=== PATIENT | male | born 1980 | race Caucasian/White ===

== ENCOUNTER 2024-04-18 13:07 | Outpatient (AMB) | payer BC, SELFPAY ==
--- NOTE | 2024-04-18 13:11 | MHC.PC.OV ---
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 Intake Note: patient here for new patient visit Client Services Analyst Required: No Allergies gluten Allergy (Severe, Uncoded 04/18/24 13:29) Diarrhea Medication List - Last Reconciled 04/18/24 by Tami Glass CNP No Known Home Meds Tobacco use date assessed: 04/18/24 Dental Screening Dental Screen Date: 04/18/24 Did you have a dental visit in the last 12 months?: Yes Did you have a dental problem in the last 6 months where you did not have access to dental care?: No Was dental information given to patient?: Patient has dentist HPI HPI Comments History of Present Illness Details 43-year-old male presents to [facility] He was seen at an urgent care clinic for bilateral otitis median on 03/19/2023 and his blood pressure was 120/82 He was evaluated in an ED for chest been in 10/2023 and was inform his blood pressure was elevated, but he was not given the reading. His blood pressure improved in the ED without intervention. Prior PCP? - [facility] Last office visit/CPE/labs - 05/26/2018 Acute issue(s) - None Past Medical History - Morbid obesity - Celiac disease - Eczema Surgical History - Vasectomy Family History - Dad: HTN, celiac disease, eczema - Mom: DM, hypothyroidism, myasthenia gravis - MGM; Dementia Social History - Nonsmoker. Does not vape. Drinks 1-2 beers every 1-2 months. Denies recreational drug use - He does not make healthy dietary choices (consumes fast foods and processed foods). Active but does not exercise routinely. Generally sleep well Health maintenance - Last eye exam was 3-4 years ago. Referred to Ophthalmology for routine eye exam - Last dental visit was within the last 6 months. He is followed every 6 months - Last Tdap was in 12/2018 - Has not been vaccinated for the flu this season; vaccinated during this visit [facility] Medical History (Updated 04/18/24 @ 15:44 by Tami Glass CNP) Eczema Celiac disease Surgical History (Updated 04/18/24 @ 13:27 by Naida Costello) History of vasectomy History of endoscopy Family History (Updated 04/18/24 @ 13:30 by Naida Costello) Paternal Grandmother No problems noted. Maternal Grandmother Mental illness in member of household Father High blood pressure Mother Diabetes Thyroid disorder Sister Thyroid disorder Social History Housing: House Patient Tobacco Use Status: Never used Tobacco e-Cigarette/Vaping Use: Never Used Second Hand Smoke Exposure: No service: No Current occupational status: employed Current occupation: [employer] Current occupational exposures/hazards: No Cognitive needs: No Hearing needs: No Vision needs: No Questionnaire PHQ-9 Over the last 2 weeks, how often have you been bothered by any of the following problems? 1. Little interest or pleasure in doing things: not at all 2. Feeling down, depressed, or hopeless: not at all 3. Trouble falling or staying asleep, or sleeping too much: not at all 4. Feeling tired or having little energy: several days 5. Poor appetite or overeating: several days 6. Feeling bad about yourself - or that you are a failure or have let yourself or your family down: not at all 7. Trouble concentrating on things, such as reading the newspaper or watching television: several days 8. Moving or speaking so slowly that other people could have noticed. Or the opposite - being so fidgety or restless that you have been moving around a lot more than usual: not at all 9. Thoughts that you would be better off or of hurting yourself in some way: not at all Total score: 3 Depression Screening Interpretation: Negative Depression Screening Done: Yes 75236 - PHQ-9 Billing: Yes Source: Developed by Drs. Ludwin Zavala, Paula Borden, Marcial Ojeda and colleagues, with an educational re from [address] Thrive Questionnaire Date Thrive assessed: 04/18/24 I am a: Patient What is your living situation today?: I have a steady place to live Within the past 12 months, did the food you bought not last and you didn't have the money to get more?: Never true Within the past 12 months, did you worry whether your food would run out before you got money to buy more?: Never true Do you have trouble paying for medicines?: No Do you have trouble getting transportation to medical appointments?: No Do you have trouble paying your heating and electricity bill?: No Do you have trouble taking care of your child, family member or friend?: No Do you have trouble with day-to-day activities such as bathing, preparing meals, shopping, managing finances, etc.?: No Are you currently unemployed and looking for a job?: No Are you interested in more education?: No Please select the resources that you would like help with: None Currently or been in a relationship where the following occur: No concerns reported THRIVE Score: 0 AUDIT C Alcohol Use Questionnaire (AUDIT-C) 1. How often do you have a drink containing alcohol?: Monthly or less 2. How many drinks containing alcohol do you have on a typical day when you are drinking?: 1 or 2 3. How often do you have six or more drinks on one occasion?: Never Total Score: 1 Score Reviewed/Action Taken: Yes ANDRAE-7 AMB Questionnaire ANDRAE-7 Date ANDRAE - 7 assessed: 04/18/24 Feeling nervous, anxious, or on edge: 0 = Not at all Not being able to stop or control worryin = Not at all Worrying too much about different things: 0 = Not at all Trouble relaxin = Several days Being so restless that it is hard to sit still: 0 = Not at all Becoming easily annoyed or irritable: 1 = Several days Feeling afraid as if something awful might happen: 0 = Not at all Total ANDRAE-7 score (0-4 normal; 5-9 mild; 10-14 moderate; 15-21 severe): 2 Source: Developed by Drs. Ludwin Zavala, Paula Borden, Marcial Ojeda and colleagues, with an educational re from [address] ANDRAE-7 Assessment Billing ANDRAE-7 Assessment Tool: ANDRAE-7 Assessment 06160 Review of Systems Const Details: Denies chills, Denies fatigue, Denies fever(s), Denies headache(s) and Denies weakness HEENT Denies change in vision, Denies dizziness, Denies headache(s), Denies hearing loss, Denies nasal congestion, Denies sinus pain, Denies sinus pressure and Denies sore throat Card Denies chest pain, Denies lightheadedness, Denies dyspnea and Denies other (palpitations) Resp Denies cough, Denies dyspnea and Denies wheezing GI Denies abdominal pain, Denies melena, Denies hematochezia, Denies change in bowel habits, Denies dyspepsia and Denies nausea Denies hematuria and Denies dysuria Musc Denies abnormal gait, Denies myalgias, Denies arthralgias, Denies numbness and Denies tingling Skin/Breast Denies rash, Denies unusual bruising and Denies wounds Neuro Denies abnormal gait, Denies dizziness, Denies headache(s), Denies memory loss, Denies numbness, Denies Sensory deficit (Neuro), Denies tingling and Denies weakness Psych Denies anxiety, Denies depression and Denies memory loss Endo Denies cold intolerance, Denies fatigue, Denies heat intolerance, Denies polydipsia and Denies polyuria Duc/Lymph Denies easy bleeding and Denies easy bruising Aller/Immun Denies wheezing Physical exam (Primary Care) Vital Signs: Last Vital Signs Temp 98.8 F 04/18/24 13:18 Pulse 84 04/18/24 13:50 Resp 16 04/18/24 13:18 BP 150/80 H 04/18/24 13:50 Pulse Ox 98 04/18/24 13:18 Oxygen Delivery Method Room Air 04/18/24 13:18 BMI result Body Mass Index 41.1 Tobacco/Smoking Status: Tobacco use Status Tobacco use date assessed 04/18/24 04/18/24 13:17 Patient Tobacco Use Status Never used Tobacco 04/18/24 13:17 e-Cigarette/Vaping Use Never Used 04/18/24 13:17 PHQ-9: PHQ-9 Score PHQ-9: Total score 3 04/18/24 14:18 Depression Screening Interpretation: Negative Thrive Assessment: Date of Thrive Assessment Date Thrive assessed 04/18/24 04/18/24 13:13 Currently or been in a relationship where the following occur: No concerns reported Const Other: General: no acute distress, well developed, alert and awake Nutritional Appearance: well nourished Orientation/consciousness: patient oriented x3 HENMT Head: Yes normocephalic and Yes atraumatic Ears: hearing grossly normal bilaterally and TM's normal bilaterally General nose exam: Normal external nose present and Normal nares present Mouth: Normal oral and palatal mucosa present and moist mucous membranes Teeth and gingiva: dentition normal Throat: Yes oropharynx normal Eyes Pupils: Equal, round and reactive pupils present and Pupil accommodation reflex normal EOM: EOMs intact bilaterally Neck Neck: Yes normal visual inspection, Yes no lymphadenopathy and Yes trachea midline Thyroid: Thyroid normal Carotids: no bruits Lymphatic: no lymphadenopathy noted Chest Chest palpation & inspection: normal inspection of the chest Resp Effort & Inspection: normal respiratory effort Auscultation: clear to auscultation bilaterally Cardio Rate: regular rate Rhythm: regular rhythm Heart sounds: S1 normal heart sound present, S2 normal heart sound present, no gallops, no murmurs and no rubs Bruits: no abdominal aortic bruits and no carotid bruits GI Palpation (GI): No Abdominal aortic bruit present, Soft to palpation, nontender, No hepatosplenomegaly present and No Rebound tenderness present Auscultation: normal bowel sounds General: Yes no CVA tenderness Back/Spine/Pelvis Back: no CVA tenderness Cervical Spine: cervical ROM normal and No Cervical spine tenderness Thoracic/Lumbar Spine: thoraco-lumbar ROM normal, No pain with thoraco-lumbar ROM, No thoracic spinal tenderness and No lumbar spinal tenderness Skin General: warm and dry. Normal skin color. Normal skin turgor Lesions: no lesions Rashes: no rashes Trauma: no lacerations or abrasions Wounds: no wounds Nails: normal Neuro General: patient oriented x3, gait normal and CN's II-XI intact bilaterally Cranial nerves: Yes Equal, round and reactive pupils present Cognition (Neuro): normal cognition Gait exam (Neuro): Normal gait present Motor exam (neuro): 5/5 motor strength present throughout Sensory Exam: No Sensory deficit (Neuro) Deep tendon reflexes (DTR's): Right patellar reflex intensity grade: 2+ and Left patellar reflex intensity grade: 2+ Extrem General: Yes normal to inspection, No edema and No calf tenderness Psych Appearance: grossly normal Affect: normal affect Attitude: cooperative Thought process: Normal thought process present Office Procedures Flu Questionnaire Does the patient have a severe egg allergy?: No Does the patient have severe life threatening allergies?: No Does the patient have a fever or illness today?: No Has the patient ever had Guillain-Waldron Syndrome?: No Has the patient ever had any past reaction to a flu shot?: No Immunizations Fluarix Triv [id number] (PF) 45 mcg (15 mcg x 3)/0.5 mL IM syringe Performing Provider: Tami Glass CNP Performing Location: [facility] Administered by: Leo Abdullahi RN on 04/18/24 14:15 Dose Route Admin Location Dispensed Lot Number Expiration Date NDC 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 [employer]obile 0.5 mL IM Left Deltoid 0.5 mL [id number] 08/28/24 63024-708-21 [employer] VIS Given Date VIS Provided VIS Publication Date 04/18/24 Single Vaccine 20 Eligibility Eligibility Date Funding Source Not [facility] Eligible 04/18/24 Private Coding Level of Care Code New Pt Level 3 (86037) New Pt Prev Care 40-64y(88429) Diagnoses Normal physical examination, routine Z00.00 Elevated blood-pressure reading without diagnosis of hypertension R03.0 Morbid obesity with BMI of 40.0-44.9, adult E66.01; Z68.41 Eye exam, routine Z01.00 Laboratory tests ordered as part of a complete physical exam (CPE) Z00.00 Additional Codes ANDRAE-7 Assessment Billing - ANDRAE-7 Assessment Tool: ANDRAE-7 Assessment 02091 ([id number]) PHQ-9 - 45693 - PHQ-9 Billing: Yes ([id number]) Assessment & Plan Assessment & Plan (1) Normal physical examination, routine: Code(s): Z00.00 - Encounter for general adult medical examination without abnormal findings Category: Medical Plan: No significant functional limitation noted. Perform lab work and follow up in 1 weeks for elevated BP readings and labs review. Return sooner without symptoms or concerns. Verbalized understanding and agreed with the plan. (2) Elevated blood-pressure reading without diagnosis of hypertension: Code(s): R03.0 - Elevated blood-pressure reading, without diagnosis of hypertension Category: Medical Plan: Resting blood pressure is 150/80, above goal of less than 140/90. Heart rate is 84. His blood pressure was elevated during the workup in the ED for chest pain in 10/2023. His father has history of hypertension. His diet and is unhealthy, including fast and processed foods. Healthy diet, including low-sodium encouraged. Encouraged to exercise regularly. Go to the ED with symptoms of hypertension such as visual disturbances, chest pain, or severe headache. Follow-up for nurse visit for blood pressure check in 3 days. Return in 1 week or sooner with symptoms or concerns. Verbalized understanding and agreed with treatment plan. (3) Morbid obesity with BMI of 40.0-44.9, adult: Code(s): E66.01 - Morbid (severe) obesity due to excess calories; Z68.41 - Body mass index [BMI] 40.0-44.9, adult Category: Medical Plan: He currently weighs 220 lb, BMI is 41.1. His diet and is unhealthy, including fast and processed foods. He is active but does not exercise regularly. Declines referral to shoe sprayer at this time and notes he will start making healthy dietary choices and exercising routinely. Follow-up as needed. Verbalized understanding and agreed with the plan. (4) Eye exam, routine: Code(s): Z01.00 - Encounter for examination of eyes and vision without abnormal findings Category: Medical Plan: Last eye exam was 3-4 years ago. Referred to Ophthalmology for routine eye exam (5) Laboratory tests ordered as part of a complete physical exam (CPE): Code(s): Z00.00 - Encounter for general adult medical examination without abnormal findings Category: Medical Plan: Fasting labs ordered as part of a complete physical exam. Advised to fast for at least 10 hours before getting labs drawn. May drink water Verbalized understanding and agreed with treatment plan. Orders: Orders Comprehensive [place]. Panel Fast Today Z00.00 - Encounter for general adult medical examination without abnormal findings Influenza [id number] Immunization Today Z23 - Encounter for immunization Complete Blood Count Auto Diff Today Z00.00 - Encounter for general adult medical examination without abnormal findings Lipid Panel Today Z00.00 - Encounter for general adult medical examination without abnormal findings Microalbumin, Random (w Creat) Today Z00.00 - Encounter for general adult medical examination without abnormal findings TSH reflex Free T4 Today Z00.00 - Encounter for general adult medical examination without abnormal findings UA CC w/rflx Micro + Cult Today Z00.00 - Encounter for general adult medical examination without abnormal findings Referrals Ophthalmology Referral Z01.00 - Encounter for examination of eyes and vision without abnormal findings
[2024-04-18 13:18] VITALS: BP 168/90; PULSE 85; RESP 16; TEMP 37.1; O2SAT 98; BMI 41.1
[2024-04-18 13:50] VITALS: BP 150/80; PULSE 84
--- OUTSIDE RECORDS SUMMARY | 2024-04-18 14:04 | XMS_ITS | Encounter Summary ---
Author Organization [facility] Address [address] [place] [id number] Care Team Providers Care Sales Development Coordinator Name Role Phone Pcp, No Primary Care Provider Unavailabl e Reason for Visit * Reason Comments Ear Pain Pt C/O left ear pain was seen at another UC was on medx pt state it did work Encounter Details Date Type Department Care Team ([facility] st Contact Info) Description 03/24/2024 9:50 AM EST Office Visit [facility] [address] [address] Pan Hickey MD [address] [place] [address] Reuben Cabezas II, PA-C [address] [place] [address] Non-recurrent acute suppurative otitis media of left ear without spontaneous rupture of tympanic membrane (Primary Dx); Acute otitis externa of left ear, unspecified type Social History Tobacco Use Types Packs/Day Years Used Date Smoking Tobacco: Never Assessed Sex and Gender Information Value Date Recorded Sex Assigned at Not on file Gender Identity Not on file Sexual Orientation Not on file documented as of this encounter Last Filed Vital Signs Vital Sign Reading Time Taken Comments Blood Pressure 148/94 03/24/2024 9:48 AM EST Pulse 85 03/24/2024 9:48 AM EST Temperature 36.9 ??C (98.4 ??F) 03/24/2024 9:48 AM ES T Respiratory Rate - - Oxygen Saturation 96% 03/24/2024 9:48 AM EST Inhaled Oxygen Concentration - - Weight - - Height - - Body Mass Index - - documented in this encounter Progress Notes * HALIMA Castellanos II 03/24/2024 10:01 AM EST Assessment & Plan Taz was seen today for ear pain. Diagnoses and all orders for this visit: Non-recurrent acute suppurative otitis media of left ear without spontaneous rupture of tympanic membrane - cefdinir (OMNICEF) 300 MG capsule; Take 1 capsule (300 mg total) by mouth 2 (two) times a day. Acute otitis externa of left ear, unspecified type - ciprofloxacin-dexAMETHasone (CIPRODEX) 0.3-0.1 % otic suspension; Administer 4 drops into the left ear 2 (two) times a day. MDM: History, physical exam, and signs and symptoms consistent with left acute otitis media. Given that patient just finished a 7-day course of Augmentin, will treat with cefdinir twice daily x 10 days. Patient also has erythema and edema to the left external canal consistent with left acute otitisexterna, will treat with Ciprodex drops. I encouraged Tylenol/Motrin as needed for discomfort. I did advise follow-up with ENT specialist in the next 1 to 2 weeks for reevaluation if needed. Strict return and ED precautions discussed for any new, worsening, or changing symptoms. Patient verbalized understanding, all questions answered, and patient in agreement with treatment plan. Subjective Subjective Patient ID: Taz Arguelles is a 43 y.o. male. 43-year-old male presents for evaluation of left ear pain ongoing for the last few weeks. States that he was seen at another urgent care last week, diagnosed with bilateral ear infections and put on a 7-day course of Augmentin. States that he finished the course of antibiotics and his right ear resolved but he continues to have pain to the left ear. States that he has a history of chronic ear infections and believes he needs another antibiotic. Denies tinnitus, ear drainage, fever/chills, or any other symptoms. Does not use Q-tips. Has no known allergies Review of Systems Constitutional: Negative for chills and fever. HENT: Positive for ear pain. Negative for ear discharge, sinus pressure and sinus pain. Respiratory: Negative for cough and shortness of breath. All other systems reviewed and are negative. Objective Objective Vitals: 03/24/24 0948 BP: (!) 148/94 Pulse: 85 Temp: 98.4 ??F (36.9 ??C) SpO2: 96% Physical Exam HENT: Right Ear: Tympanic membrane, ear canal and external ear normal. No middle ear effusion. Tympanic membrane is not perforated, erythematous or bulging. Left Ear: No middle ear effusion. Tympanic membrane is erythematous and bulging. Tympanic membrane is not perforated. Ears: Comments: Erythema and edema with bulging to the left TM consistent with left acute otitis media. No exudate or discharge. No active bleeding. Slight erythema and edema noted to the left external canal. No evidence of mastoiditis. No evidence of cellulitis to the external ear canal Mouth/Throat: Pharynx: Oropharynx is clear. Pulmonary: Effort: Pulmonary effort is normal. No respiratory distress. Musculoskeletal: Cervical back: Normal range of motion and neck supple. Skin: Capillary Refill: Capillary refill takes less than 2 seconds. Neurological: General: No focal deficit present. Mental Status: He is alert. documented in this encounter Plan of Treatment Not on file documented as of this encounter Visit Diagnoses Diagnosis Non-recurrent acute suppurative otitis media of left ear without spontaneous rupture of tympanic membrane- Primary Acute otitis externa of left ear, unspecified type documented in this encounter Care Teams Sales Development Coordinator Relationship Specialty Start Date End Date Pcp, No PCP - General General Medicine 04/12/23 documented as of this encounter
--- OUTSIDE RECORDS SUMMARY | 2024-04-18 14:04 | XMS_ITS | Encounter Summary ---
Author Organization [facility] Address [address] [place] [address] Care Team Providers Care Munitions Factory Worker Name Role Phone Pcp, No Primary Care Provider Unavailabl e Encounter Details Date Type Department Care Team (Late st Contact Info) Description 03/24/2024 Scanned Document [address] [place] [phone] Provider, Generic Social History Tobacco Use Types Packs/Day Years Used Date Smoking Tobacco: Never Assessed Sex and Gender Information Value Date Recorded Sex Assigned at Not on file Gender Identity Not on file Sexual Orientation Not on file documented as of this encounter Plan of Treatment Not on file documented as of this encounter Visit Diagnoses Not on filedocumented in this encounter Care Teams Munitions Factory Worker Relationship Specialty Start Date End Date Pcp, No PCP - General General Medicine 04/12/23 documented as of this encounter
--- OUTSIDE RECORDS SUMMARY | 2024-04-18 14:04 | XMS_ITS ---
Author Name [facility] Organization Unknown History of Medication Use Medication Directions Dispensed Refills Start Date End Date Stat us cefdinir (OMNICEF) 300 MG capsule Take 1 capsule (300 mg total) by mouth 2 (two) times a day. 03/24/2024 active ciprofloxacin-dexAM ETHasone (CIPRODEX) 0.3-0.1 % otic suspension Administer 4 drops into the left ear 2 (two) times a day. 03/24/2024 active cephalexin (KEFLEX) 500 MG capsule Take 1 capsule (500 mg total) by mouth 4 (four) times a day. 04/12/2023 04/20/2023 active Allergies Allergen Reaction Severity Comment Documented Date Source Statu s GLUTEN Not Indicated [facility]_PHYS[facility] Problems Problem Status Onset Date Problem Type Date of Resolution Source Acute otitis externa of left ear, unspecified type active EncounterDiagnosisAct [facility] Otitis media, unspecified, left ear active 2023-06-16 ProblemAct [facility] Non-recurrent acute suppurative otitis media of left ear without spontaneous rupture of tympanic membrane [facility]
--- OUTSIDE RECORDS SUMMARY | 2024-04-18 14:04 | XMS_ITS | Clinical Summary ---
Author Organization [facility] Address [address] [place] [address] Care Team Providers Care Ventilation Mechanic Name Role Phone Pcp, No Primary Care Provider Unavailabl e Allergies No known active allergies Medications Medication Sig Dispensed Refills Start Date End Date Status amoxicillin-clavul anate (AUGMENTIN) 875-125 MG per tabletIndications: Left non-suppurative otitis media Take 1 tablet by mouth 2 (two) times a day. 20 tablet 04/12/2023 Active ciprofloxacin-dexA METHasone (CIPRODEX) 0.3-0.1 % otic suspensionIndicati ons:Acute otitis externa of left ear, unspecified type Administer 4 drops into the left ear 2 (two) times a day. 7.5 mL 03/24/2024 Active cefdinir (OMNICEF) 300 MG capsuleIndications :Non-recurrent acute suppurative otitis media of left ear without spontaneous rupture of tympanic membrane Take 1 capsule (300 mg total) by mouth 2 (two) times a day. 20 capsule 03/24/2024 04/03/2024 Active Problems No known active problems Encounters Date Type Department Care Team Description 03/24/2024 9:50 AM EST Office Visit [facility] [address] [place] [address] Pan Hickey MD Servello, Reuben Pompa II, PA-C Non-recurrent acute suppurative otitis media of left ear without spontaneous rupture of tympanic membrane (Primary Dx); Acute otitis externa of left ear, unspecified type 03/24/2024 Scanned Document [facility] [address] [facility] [address] [place] [phone] Provider, Generic 03/24/2024 Scanned Document [facility] [address] [facility] [address] [place] [phone] Provider, Generic 03/24/2024 Travel from Last 3 Months Social History Tobacco Use Types Packs/Day Years Used Date Smoking Tobacco: Never Assessed Sex and Gender Information Value Date Recorded Sex Assigned at Not on file Gender Identity Not on file Sexual Orientation Not on file Last Filed Vital Signs Vital Sign Reading Time Taken Comments Blood Pressure 148/94 03/24/2024 9:48 AM EST Pulse 85 03/24/2024 9:48 AM EST Temperature 36.9 ??C (98.4 ??F) 03/24/2024 9:48 AM ES T Respiratory Rate - - Oxygen Saturation 96% 03/24/2024 9:48 AM EST Inhaled Oxygen Concentration - - Weight 141 kg (310 lb) 11/24/2021 9:22 AM EDT Height 188 cm (6' 2 ) 11/24/2021 9:22 AM EDT Body Mass Index 39.8 11/24/2021 9:22 AM EDT Plan of Treatment Health Maintenance Due Date Last Done Comments Hepatitis C Virus Screening 1982 HIV Screening 12/23/1995 DTaP/Tdap/Td Vaccines (1 - Tdap) 2001 Hepatitis B Vaccines (1 of 3 - 19+ 3-dose series) 2001 Influenza Vaccine 09/30/2023 COVID-19 Vaccine (3 - 2023-2 5 season) 2023 07/24/2020, 06/26/2020 HPV Vaccines Aged Out No longer eligi ble based on patient's age to complete this topic Pneumococcal Vaccine: Pediatric (0-5 Years) and At-Risk Patients (6 to 49 Years) Aged Out No longer eligible b ased on patient's age to complete this topic Care Teams Ventilation Mechanic Relationship Specialty Start Date End Date Pcp, No PCP - General General Medicine 04/12/23
--- OUTSIDE RECORDS SUMMARY | 2024-04-18 14:04 | XMS_ITS | Encounter Summary ---
Author Organization [facility] Address [address] [place] [address] Care Team Providers Care Raftsman Name Role Phone Pcp, No Primary Care Provider Unavailabl e Encounter Details Date Type Department Care Team (Latest Contact Info) Description 03/24/2024 Travel Social History Tobacco Use Types Packs/Day Years Used Date Smoking Tobacco: Never Assessed Sex and Gender Information Value Date Recorded Sex Assigned at Not on file Gender Identity Not on file Sexual Orientation Not on file documented as of this encounter Plan of Treatment Not on file documented as of this encounter Visit Diagnoses Not on filedocumented in this encounter Care Teams Raftsman Relationship Specialty Start Date End Date Pcp, No PCP - General General Medicine 04/12/23 documented as of this encounter
--- OUTSIDE RECORDS SUMMARY | 2024-04-18 14:04 | XMS_ITS | Encounter Summary ---
Author Organization [facility] Address [address] [place] [address] Care Team Providers Care Police Justice Name Role Phone Pcp, No Primary Care Provider Unavailabl e Encounter Details Date Type Department Care Team (Late st Contact Info) Description 03/24/2024 Scanned Document [address] [place] [phone] Provider, Generic Social History Tobacco Use [...] on filedocumented in this encounter Care Teams Police Justice Relationship Specialty Start Date End Date Pcp, No PCP - General General Medicine 04/12/23 documented as of this encounter
== END 2024-04-18 14:12 | disposition home or self-care (01) ==
PROVIDERS: PCP Nurse Practitioner Family; Visit Provider Nurse Practitioner Family
DX: Z00.00 Encounter for general adult medical examination without abnormal findings (principal); R03.0 Elevated blood-pressure reading, without diagnosis of hypertension; E66.01 Morbid (severe) obesity due to excess calories; Z68.41 Body mass index [BMI] 40.0-44.9, adult; Z23 Encounter for immunization

== ENCOUNTER → 2024-04-18 13:07 | Outpatient (BNVA) | payer BC, SELFPAY | PROVIDERS: PCP Nurse Practitioner Family; Visit Provider Nurse Practitioner Family | DX: Z00.00 Encounter for general adult medical examination without abnormal findings (principal); Z23 Encounter for immunization; R03.0 Elevated blood-pressure reading, without diagnosis of hypertension; E66.01 Morbid (severe) obesity due to excess calories; Z68.41 Body mass index [BMI] 40.0-44.9, adult | CPT/HCPCS: 90471; 90656; 96127 ==

== ENCOUNTER → 2024-04-21 08:29 | Outpatient (BNVA) | payer BC, SELFPAY | PROVIDERS: PCP Nurse Practitioner Family; Visit Provider Nurse Practitioner Family ==

== ENCOUNTER 2024-04-21 08:54 | Outpatient (REF) | payer BC, SELFPAY ==
--- OUTSIDE RECORDS SUMMARY | 2024-04-21 09:16 | XMS_ITS | Encounter Summary ---
Author Organization [facility] Address [address] [place] [address] Care Team Providers Care Slip Cover Maker Name Role Phone Pcp, No Primary Care [...] on filedocumented in this encounter Care Teams Slip Cover Maker Relationship Specialty Start Date End Date Pcp, No PCP - General General Medicine 04/12/23 documented as of this encounter
--- OUTSIDE RECORDS SUMMARY | 2024-04-21 09:16 | XMS_ITS | Clinical Summary ---
Author Organization [facility] Address [address] [place] [address] Care Team Providers Care Bowling Ball Molder Name Role Phone Pcp, No Primary Care [...] Description 03/24/2024 9:50 AM EST Office Visit [facility] [address] [place] [address] Pan Hickey MD Servello, Reuben Pompa II, PA-C Non-recurrent acute suppurative otitis media of left ear without spontaneous rupture of tympanic membrane (Primary Dx); Acute otitis externa of left ear, unspecified type 03/24/2024 Scanned Document [facility] [address] [facility] [address] [place] [phone] Provider, Generic 03/24/2024 Scanned Document [facility] [address] [facility] [address] [place] [phone] Provider, Generic 03/24/2024 Travel from Last 3 [...] age to complete this topic Care Teams Bowling Ball Molder Relationship Specialty Start Date End Date Pcp, No PCP - General General Medicine 04/12/23
--- OUTSIDE RECORDS SUMMARY | 2024-04-21 09:16 | XMS_ITS | Encounter Summary ---
Author Organization [facility] Address [address] [place] [address] Care Team Providers Care Federal Judicial Law Clerk Name Role Phone Pcp, No Primary Care Provider Unavailabl e Reason for Visit * Reason Comments Ear Pain Pt C/O left ear pain was seen at another UC was on medx pt state it did work Encounter Details Date Type Department Care Team ([facility] st Contact Info) Description 03/24/2024 9:50 AM EST Office Visit [facility] [address] [address] Pan Hickey MD [address] [place] [address] Reuben Cabezas II, PA-C [address] [place] [address] Non-recurrent acute suppurative otitis media of left [...] type documented in this encounter Care Teams Federal Judicial Law Clerk Relationship Specialty Start Date End Date Pcp, No PCP - General General Medicine 04/12/23 documented as of this encounter
--- OUTSIDE RECORDS SUMMARY | 2024-04-21 09:16 | XMS_ITS | Encounter Summary ---
Author Organization [facility] Address [address] [place] [address] Care Team Providers Care Tongue And Groove Machine Operator Name Role Phone Pcp, No Primary Care Provider Unavailabl e Encounter Details Date Type Department Care Team (Late st Contact Info) Description 03/24/2024 Scanned Document [address] [place] [phone] Provider, Generic Social History Tobacco Use [...] on filedocumented in this encounter Care Teams Tongue And Groove Machine Operator Relationship Specialty Start Date End Date Pcp, No PCP - General General Medicine 04/12/23 documented as of this encounter
--- OUTSIDE RECORDS SUMMARY | 2024-04-21 09:16 | XMS_ITS | Encounter Summary ---
Author Organization [facility] Address [address] [place] [address] Care Team Providers Care Research/Program Director Name Role Phone Pcp, No Primary Care Provider Unavailabl e Encounter Details Date Type Department Care Team (Late st Contact Info) Description 03/24/2024 Scanned Document [address] [place] [phone] Provider, Generic Social History Tobacco Use [...] on filedocumented in this encounter Care Teams Research/Program Director Relationship Specialty Start Date End Date Pcp, No PCP - General General Medicine 04/12/23 documented as of this encounter
[2024-04-21 11:08] LABS: MANUAL DIFF FLAG NO
[2024-04-21 11:12] LABS: Basophils Absolute Auto 0.1 X10*3/uL (0.0-0.2); Basophils Percent Auto 1.2 % (0-2); Eosinophils Absolute Auto 0.2 X10*3/uL (0.0-0.4); Eosinophils Percent Auto 3.4 % (0-4); Hematocrit 46.1 % (42.0-52.0); Hemoglobin 15.5 g/dl (14.0-18.0); Imm Gran Abs Auto 0.01 X10*3/uL (0.00-0.03); Imm Gran Pct Auto 0.2 % (0.0-0.4); Lymphocytes Absolute Auto 1.6 X10*3/uL (1.2-4.9); Lymphocytes Percent Auto 26.6 % (20-40); Mean Corpuscular HGB Conc 33.6 g/dl (31.0-36.0); Mean Corpuscular Hemoglobin 29.6 pg (27.0-33.0); Mean Corpuscular Volume 88.1 fL (80.0-98.0); Mean Platelet Volume 12.6 fL (9.4-12.4); Monocytes Absolute Auto 0.4 X10*3/uL (0.1-1.2); Monocytes Percent Auto 7.3 % (2-11); Neutrophils Absolute Auto 3.6 x10*3/uL (2.0-8.3); Neutrophils Percent Auto 61.3 % (45-73); Platelet Count 196 X10*3/uL (160-400); Red Blood Count 5.23 X10*6/uL (4.60-5.80); Red Cell Distribution Width 13.2 % (11.0-16.0); White Blood Count 5.9 X10*3/uL (4.8-10.8)
[2024-04-21 11:24] LABS: Appearance Urine Clear; Color Urine Yellow; Glucose Urine UA Negative (Negative); Leukocyte Esterase Urine Negative (Negative); Nitrite Urine Negative (Negative); PH 5.5 (5.0-9.0); Specific Gravity - Urine >= 1.030 (1.005-1.025); Urine Blood Negative (Negative); Urine Ketones Negative (Negative); Urine Protein Negative (Neg-Trace)
[2024-04-21 11:46] LABS: Alanine Aminotransferase 44 U/L (0-40); Albumin Level 4.1 g/dL (3.5-5.0); Alkaline Phosphatase 111 U/L (39-117); Anion Gap 10 (12-20); Aspartate Amino Transferase 31 U/L (5-37); Bilirubin Total 0.4 mg/dL (0.0-1.0); Blood Urea Nitrogen 11 mg/dL (9-16); Calcium 9.4 mg/dL (8.4-10.2); Carbon Dioxide 26 mmol/L (22-29); Chloride 108 mmol/L (96-108); Cholesterol 203 mg/dL (<200); Estimated Glomerular Filt Rate > 60; Glucose Fasting 93 mg/dL (60-99); HDL Cholesterol 47 mg/dL (>40); LDL Cholesterol Calculated 125 mg/dL (<100); Potassium 4.1 mmol/L (3.3-5.1); Sodium 140 mmol/L (135-145); TSH reflex Free T4 2.17 uIU/mL (0.32-4.0); Total Protein 8.2 g/dL (6.5-8.0); Triglycerides 156 mg/dL (<150)
[2024-04-21 11:58] LABS: Creatinine Urine 281.16 mg/dL; Microalbum/Creatinine Ratio Ur 3.9 ug/mg cr (<30)
== END 2024-04-21 08:55 | disposition home or self-care (01) ==
LOC: HO.WFDLDS 08:54
PROVIDERS: Visit Provider Nurse Practitioner Family
DX: Z00.00 Encounter for general adult medical examination without abnormal findings (principal); I10 Essential (primary) hypertension
CPT/HCPCS: 36415; 80053; 80061; 81003; 82043; 82570; 84443; 85025; 99211

== ENCOUNTER 2024-04-28 15:52 | Outpatient (AMB) | payer BC, SELFPAY ==
--- NOTE | 2024-04-28 15:53 | A.OFFPC_ITS ---
Vital Signs 04/28/24 15:58 04/28/24 16:31 Height 6 ft 2 in Weight 315 lb BMI 40.4 BP 160/77 H 160/80 H Blood Pressure Location Rt brachial Rt brachial Position Sitting Sitting Respiration 16 Pulse 89 104 H Pulse Source Pulse Oximeter Auscultation Temp 97.7 F Temp Source Oral Pulse Oximetry (%) 96 Oxygen Delivery Method Room Air Intake Visit Reasons: 1 wk PCP for HTN, labs revew Intake Note: patient here for follow up on HTN and lab review Orchestra Musician Required: No Allergies gluten Allergy (Severe, Uncoded 04/28/24 16:21) Diarrhea Medication List - Last Reconciled 04/28/24 by Tami Glass CNP No Known Home Meds Tobacco use date assessed: 04/28/24 Dental Screening Dental Screen Date: 04/28/24 Did you have a dental visit in the last 12 months?: Yes Did you have a dental problem in the last 6 months where you did not have access to dental care?: No Was dental information given to patient?: Patient has dentist HPI HPI Comments History of Present Illness Details 43-year-old male presents for hypertensi on and review of recent lab results. He admits to making healthy dietary choices, since his last visit, including low salt. He is active but has not been exercising. He reports significant family stressors recently. [facility] Medical History (Updated 04/28/24 @ 16:41 by Tami Glass CNP) Eczema Celiac disease Surgical History (Updated 04/18/24 @ 13:27 by Naida Costello) History of vasectomy History of endoscopy Family History (Updated 04/18/24 @ 13:30 by Naida Costello) Paternal Grandmother No problems noted. Maternal Grandmother Mental illness in member of household Father High blood pressure Mother Diabetes Thyroid disorder Sister Thyroid disorder Social History Housing: House Patient Tobacco Use Status: Never used Tobacco e-Cigarette/Vaping Use: Never Used Second Hand Smoke Exposure: No service: No Current occupational status: employed Current occupation: [employer] Current occupational exposures/hazards: No Cognitive needs: No Hearing needs: No Vision needs: No Questionnaire Thrive Questionnaire Date Thrive assessed: 04/18/24 I am a: Patient What is your living situation today?: I have a steady place to live Within the past 12 months, did the food you bought not last and you didn't have the money to get more?: Never true Within the past 12 months, did you worry whether your food would run out before you got money to buy more?: Never true Do you have trouble paying for medicines?: No Do you have trouble getting transportation to medical appointments?: No Do you have trouble paying your heating and electricity bill?: No Do you have trouble taking care of your child, family member or friend?: No Do you have trouble with day-to-day activities such as bathing, preparing meals, shopping, managing finances, etc.?: No Are you currently unemployed and looking for a job?: No Are you interested in more education?: No Please select the resources that you would like help with: None Currently or been in a relationship where the following occur: No concerns reported THRIVE Score: 0 ANDRAE-7 AMB Questionnaire ANDRAE-7 Date ANDRAE - 7 assessed: 04/18/24 Source: Developed by Drs. Ludwin Zavala, Paula Borden, Marcial Ojeda and colleagues, with an educational re from [email or web address]. Review of Systems Const Details: Const Denies chills, Denies fatigue, Denies fever(s), Denies headache(s) and Denies weakness ENT Denies dizziness and Denies headache(s) Card Denies chest pain, Denies lightheadedness, Denies dyspnea and Denies other (Pa lpitations) Resp Denies cough, Denies dyspnea, Denies wheezing and Denies other ( shortness of breath) GI Denies abdominal pain, Denies melena, Denies hematochezia, Denies change in bowel habits, Denies dyspepsia and Denies nausea Denies hematuria and Denies dysuria Musc Denies abnormal gait, Denies myalgias, Denies arthralgias, Denies numbness and Denies tingling Skin/Breast Denies rash, Denies unusual bruising and Denies wounds Neuro Denies abnormal gait, Denies dizziness, Denies headache(s), Denies memory loss, Denies numbness, Denies Sensory deficit (Neuro), Denies tingling and Denies weakness Psych Denies anxiety, Denies depression, Denies memory loss Endo Denies cold intolerance, Denies fatigue, Denies heat intolerance, Denies polydipsia and Denies polyuria Aller/Immun Denies wheezing Physical exam (Primary Care) Vital Signs: Last Vital Signs Temp 97.7 F 04/28/24 15:58 Pulse 89 04/28/24 15:58 Resp 16 04/28/24 15:58 BP 160/77 H 04/28/24 15:58 Pulse Ox 96 04/28/24 15:58 Oxygen Delivery Method Room Air 04/28/24 15:58 BMI result Body Mass Index 40.4 Tobacco/Smoking Status: Tobacco use Status Tobacco use date assessed 04/28/24 04/28/24 16:03 Patient Tobacco Use Status Never used Tobacco 04/28/24 15:56 e-Cigarette/Vaping Use Never Used 04/28/24 15:56 Thrive Assessment: Date of Thrive Assessment Date Thrive assessed 04/18/24 04/28/24 15:56 Currently or been in a relationship where the following occur: No concerns reported Const Other: General: no acute distress and well developed Nutritional Appearance: well nourished Orientation/consciousness: patient oriented x3 HENMT Head: Yes normocephalic and Yes atraumatic Eyes General: appearance normal, both eyes and all related structures Pupils: Equal, round and reactive pupils present EOM: EOMs intact bilaterally Resp Effort & Inspection: normal respiratory effort Auscultation: clear to auscultation bilaterally Cardio Rate: regular rate Rhythm: regular rhythm Heart sounds: S1 normal heart sound present, S2 normal heart sound present, no gallops, no murmurs and no rubs GI Palpation (GI): No Abdominal aortic bruit present, Soft to palpation, nontender, No hepatosplenomegaly present and No Rebound tenderness present Auscultation: normal bowel sounds General: Yes no CVA tenderness Back/Spine/Pelvis Back: no CVA tenderness Cervical Spine: cervical ROM normal and No Cervical spine tenderness Thoracic/Lumbar Spine: thoraco-lumbar ROM normal, No pain with thoraco-lumbar ROM, No thoracic spinal tenderness and No lumbar spinal tenderness Extrem General: Yes normal to inspection, No edema and No calf tenderness Skin General: warm and dry. Normal skin color. Normal skin turgor Neuro General: patient oriented x3, gait normal and no focal neuro deficit Cranial nerves: Yes Equal, round and reactive pupils present Cognition (Neuro): normal cognition Gait exam (Neuro): Normal gait present Sensory Exam: No Sensory deficit (Neuro) Psych Appearance: grossly normal Affect: normal affect Attitude: cooperative Thought process: Normal thought process present Coding Level of Care Code Est Pt Level 4 (12901) Diagnoses Hyperlipidemia E78.5 Elevated ALT measurement R74.01 Hypertension I10 Assessment & Plan Assessment & Plan (1) Hyperlipidemia: Code(s): E78.5 - Hyperlipidemia, unspecified Category: Medical Plan: Recent triglycerides, total cholesterol, and LDL levels are slightly elevated, 156, 203, 125 respectively. Advised to limit foods high in saturated fat and avoid foods high in trans fat. Routine exercise encouraged. Will recheck lipid panel levels in 2 months. Verbalized understanding and agreed with treatment plan. (2) Elevated ALT measurement: Code(s): R74.01 - Elevation of levels of liver transaminase levels Category: Medical Plan: Recent ALT level was slightly elevated, 44. Likely nonalcoholic fatty liver. Healthy diet, including low-fat and routine exercise encouraged. Will monitor liver enzymes periodically or with related symptoms or concerns. Verbalized understanding and agreed with treatment plan. (3) Hypertension: Code(s): I10 - Essential (primary) hypertension Category: Medical Plan: Resting blood pressure is 160/80, above goal of less than 140/90. Heart rate is 104. Significant family stressors and his father's history of hypertension may be contributory factors. Will start metoprolol 50 mg twice daily; advised to take as prescribed. Instructed on the risks, benefits, and potential adverse reactions of the medication. Low-sodium diet encouraged. Follow-up in 2 weeks for hypertension or sooner with symptoms or concerns. Verbalized understanding and agreed with treatment plan. Medications: New metoprolol tartrate 50 mg PO Q12H 30 days 60 tabs 3RF
[2024-04-28 15:58] VITALS: BP 160/77; PULSE 89; RESP 16; TEMP 36.5; O2SAT 96; BMI 40.4
[2024-04-28 16:31] VITALS: BP 160/80; PULSE 104
--- OUTSIDE RECORDS SUMMARY | 2024-04-28 17:50 | XMS_ITS | Encounter Summary ---
Author Organization [facility] Address [address] [place] [address] Care Team Providers Care Autotransfusionist Name Role Phone Pcp, No Primary Care Provider Unavailabl e Encounter Details Date Type Department Care Team (Late st Contact Info) Description 03/24/2024 Scanned Document [address] [place] [phone] Provider, Generic Social History Tobacco Use [...] on filedocumented in this encounter Care Teams Autotransfusionist Relationship Specialty Start Date End Date Pcp, No PCP - General General Medicine 04/12/23 documented as of this encounter
--- OUTSIDE RECORDS SUMMARY | 2024-04-28 17:50 | XMS_ITS | Clinical Summary ---
Author Organization [facility] Address [address] [place] [id number] Care Team Providers Care Case Manager Specialist Name Role Phone Pcp, No Primary Care [...] Description 03/24/2024 9:50 AM EST Office Visit [facility] [address] [place] [address] Pan Hickey MD Servello, Reuben Pompa II, PA-C Non-recurrent acute suppurative otitis media of left ear without spontaneous rupture of tympanic membrane (Primary Dx); Acute otitis externa of left ear, unspecified type 03/24/2024 Scanned Document [facility] [address] [facility] [address] [place] [phone] Provider, Generic 03/24/2024 Scanned Document [facility] [address] [facility] [address] [place] [phone] Provider, Generic 03/24/2024 Travel from Last 3 [...] age to complete this topic Care Teams Case Manager Specialist Relationship Specialty Start Date End Date Pcp, No PCP - General General Medicine 04/12/23
--- OUTSIDE RECORDS SUMMARY | 2024-04-28 17:50 | XMS_ITS | Encounter Summary ---
Author Organization [facility] Address [address] [place] [address] Care Team Providers Care General Assembler Installer Name Role Phone Pcp, No Primary Care Provider Unavailabl e Encounter Details Date Type Department Care Team (Late st Contact Info) Description 03/24/2024 Scanned Document [address] [place] [phone] Provider, Generic Social History Tobacco Use [...] on filedocumented in this encounter Care Teams General Assembler Installer Relationship Specialty Start Date End Date Pcp, No PCP - General General Medicine 04/12/23 documented as of this encounter
== END 2024-04-28 16:41 | disposition home or self-care (01) ==
PROVIDERS: PCP Nurse Practitioner Family; Visit Provider Nurse Practitioner Family
DX: E78.5 Hyperlipidemia, unspecified (principal); R74.01 Elevation of levels of liver transaminase levels; I10 Essential (primary) hypertension

== ENCOUNTER → 2024-04-28 15:52 | Outpatient (BNVA) | payer BC, SELFPAY | PROVIDERS: PCP Nurse Practitioner Family; Visit Provider Nurse Practitioner Family ==

== ENCOUNTER 2024-05-15 09:28 | Outpatient (AMB) | payer BC, SELFPAY ==
--- NOTE | 2024-05-15 09:30 | A.OFFPC_ITS ---
Vital Signs 05/15/24 09:35 05/15/24 10:03 Height 6 ft 2 in Weight 315 lb BMI 40.4 BP 139/67 126/70 Blood Pressure Location Rt brachial Lt brachial Position Sitting Sitting Respiration 16 Pulse 72 68 Pulse Source Pulse Oximeter Auscultation Temp 98.7 F Temp Source Oral Pulse Oximetry (%) 95 Oxygen Delivery Method Room Air Intake Visit Reasons: 2 wks HTN Intake Note: patient here for 2 wks follow up on HTN Senior Writer Required: No Allergies gluten Allergy (Severe, Uncoded 05/15/24 09:58) Diarrhea Medication List - Last Reconciled 05/15/24 by Tami Glass CNP metoprolol tartrate 50 mg PO Q12H 30 days Tobacco use date assessed: 05/15/24 Dental Screening Dental Screen Date: 05/15/24 Did you have a dental visit in the last 12 months?: Yes Did you have a dental problem in the last 6 months where you did not have access to dental care?: No Was dental information given to patient?: Patient has dentist HPI HPI Comments History of Present Illness Details 43-year-old male presents for hypertensi on follow-up. He admits to taking her medications as prescribed without adverse reactions. He has been making healthy dietary choices, including low-sodium diet. He offers no complaints and denies acute symptoms at this time. [facility] Medical History (Updated 04/28/24 @ 16:41 by Tami Glass CNP) Eczema Celiac disease Surgical History (Updated 04/18/24 @ 13:27 by Naida Costello MA) History of vasectomy History of endoscopy Family History (Updated 04/18/24 @ 13:30 by Naida Costello MA) Paternal Grandmother No problems noted. Maternal Grandmother Mental illness in member of household Father High blood pressure Mother Diabetes Thyroid disorder Sister Thyroid disorder Social History Housing: House Patient Tobacco Use Status: Never used Tobacco e-Cigarette/Vaping Use: Never Used Second Hand Smoke Exposure: No service: No Current occupational status: employed Current occupation: [email or web address] Current occupational exposures/hazards: No Cognitive needs: No Hearing needs: No Vision needs: No Questionnaire Thrive Questionnaire Date Thrive assessed: 04/18/24 I am a: Patient What is your living situation today?: I have a steady place to live Within the past 12 months, did the food you bought not last and you didn't have the money to get more?: Never true Within the past 12 months, did you worry whether your food would run out before you got money to buy more?: Never true Do you have trouble paying for medicines?: No Do you have trouble getting transportation to medical appointments?: No Do you have trouble paying your heating and electricity bill?: No Do you have trouble taking care of your child, family member or friend?: No Do you have trouble with day-to-day activities such as bathing, preparing meals, shopping, managing finances, etc.?: No Are you currently unemployed and looking for a job?: No Are you interested in more education?: No Please select the resources that you would like help with: None Currently or been in a relationship where the following occur: No concerns reported THRIVE Score: 0 ANDRAE-7 AMB Questionnaire ANDRAE-7 Date ANDRAE - 7 assessed: 04/18/24 Source: Developed by Drs. Ludwin Zavala, Paula Borden, Marcial Ojeda and colleagues, with an educational re from [employer]. Review of Systems Const Details: Const Denies chills, Denies fatigue, Denies fever(s), Denies headache(s) and Denies weakness ENT Denies dizziness and Denies headache(s) Card Denies chest pain, Denies lightheadedness, Denies dyspnea and Denies other (Palpitations) Resp Denies cough, Denies dyspnea, Denies wheezing and Denies other ( shortness of breath) GI Denies abdominal pain, Denies melena, Denies hematochezia, Denies change in bowel habits, Denies dyspepsia and Denies nausea Denies hematuria and Denies dysuria Musc Denies abnormal gait, Denies myalgias, Denies arthralgias, Denies numbness and Denies tingling Skin/Breast Denies rash, Denies unusual bruising and Denies wounds Neuro Denies abnormal gait, Denies dizziness, Denies headache(s), Denies memory loss, Denies numbness, Denies Sensory deficit (Neuro), Denies tingling and Denies weakness Psych Denies anxiety, Denies depression, Denies memory loss Endo Denies cold intolerance, Denies fatigue, Denies heat intolerance, Denies polydipsia and Denies polyuria Aller/Immun Denies wheezing Physical exam (Primary Care) Vital Signs: Last Vital Signs Temp 98.7 F 05/15/24 09:35 Pulse 72 05/15/24 09:35 Resp 16 05/15/24 09:35 BP 139/67 05/15/24 09:35 Pulse Ox 95 05/15/24 09:35 Oxygen Delivery Method Room Air 05/15/24 09:35 BMI result Body Mass Index 40.4 Tobacco/Smoking Status: Tobacco use Status Tobacco use date assessed 05/15/24 05/15/24 09:37 Patient Tobacco Use Status Never used Tobacco 05/15/24 09:33 e-Cigarette/Vaping Use Never Used 05/15/24 09:33 Thrive Assessment: Date of Thrive Assessment Date Thrive assessed 04/18/24 05/15/24 09:33 Currently or been in a relationship where the following occur: No concerns repo rted Const Other: General: no acute distress and well developed Nutritional Appearance: well nourished Orientation/consciousness: patient oriented x3 HENMT Head: Yes normocephalic and Yes atraumatic Eyes General: appearance normal, both eyes and all related structures Pupils: Equal, round and reactive pupils present EOM: EOMs intact bilaterally Resp Effort & Inspection: normal respiratory effort Auscultation: clear to auscultation bilaterally Cardio Rate: regular rate Rhythm: regular rhythm Heart sounds: S1 normal heart sound present, S2 normal heart sound present, no gallops, no murmurs and no rubs GI Palpation (GI): No Abdominal aortic bruit present, Soft to palpation, nontender, No hepatosplenomegaly present and No Rebound tenderness present Auscultation: normal bowel sounds General: Yes no CVA tenderness Back/Spine/Pelvis Back: no CVA tenderness Cervical Spine: cervical ROM normal and No Cervical spine tenderness Thoracic/Lumbar Spine: thoraco-lumbar ROM normal, No pain with thoraco-lumbar ROM, No thoracic spinal tenderness and No lumbar spinal tenderness Extrem General: Yes normal to inspection, No edema and No calf tenderness Skin General: warm and dry. Normal skin color. Normal skin turgor Neuro General: patient oriented x3, gait normal and no focal neuro deficit Cranial nerves: Yes Equal, round and reactive pupils present Cognition (Neuro): normal cognition Gait exam (Neuro): Normal gait present Sensory Exam: No Sensory deficit (Neuro) Psych Appearance: grossly normal Affect: normal affect Attitude: cooperative Thought process: Normal thought process present Coding Level of Care Code Est Pt Level 3 (34295) Diagnoses Hypertension I10 Hyperlipidemia E78.5 Assessment & Plan Assessment & Plan (1) Hypertension: Code(s): I10 - Essential (primary) hypertension Category: Medical Plan: Resting blood pressure is 126/70, within goal of less than 140/90. Heart rate is 68. Continue current treatment regimen. Routine exercise and low-sodium diet encouraged. Follow-up in 6 weeks or sooner with symptoms or concerns. Verbalized understanding and agreed with treatment plan. (2) Hyperlipidemia: Code(s): E78.5 - Hyperlipidemia, unspecified Category: Medical Plan: Advised to limit foods high in saturated fat and avoid foods high in trans fat. Routine exercise encouraged. Fast for 10-12 hours, may drink water, and perform lipid panel blood work to 2-3 days before next visit. Follow-up in 6 weeks. Verbalized understanding and agreed with treatment plan. Orders: Orders Lipid Panel Today E78.5 - Hyperlipidemia, unspecified
[2024-05-15 09:35] VITALS: BP 139/67; PULSE 72; RESP 16; TEMP 37.1; O2SAT 95; BMI 40.4
[2024-05-15 10:03] VITALS: BP 126/70; PULSE 68
--- OUTSIDE RECORDS SUMMARY | 2024-05-15 10:14 | XMS_ITS | Clinical Summary ---
Author Organization [facility] Address [address] [place] [address] Care Team Providers Care Svp Digital Sales Name Role Phone Pcp, No Primary Care Provider Unavailabl e Allergies No known active allergies Medications Medication Sig Dispensed Refills Start Date End Date Status amoxicillin-clavulan ate (AUGMENTIN) 875-125 MG per tabletIndications:Le ft non-suppurative otitis media Take 1 tablet by mouth 2 (two) times a day. 20 tablet 04/12/2023 Active ciprofloxacin-dexAME THasone (CIPRODEX) 0.3-0.1 % otic suspensionIndication s:Acute otitis externa of left ear, unspecified type Administer 4 drops into the left ear 2 (two) times a day. 7.5 mL 03/24/2024 Active Active Problems No known active problems Encounters Date Type Department Care Team Description 03/24/2024 9:50 AM EST Office Visit [facility] [address] [place] [address] Pan Hickey MD Servello, Aldo R II, PA-C Non-recurrent acute suppurative otitis media of left ear without spontaneous rupture of tympanic membrane (Primary Dx); Acute otitis externa of left ear, unspecified type 03/24/2024 Scanned Document [facility] [address] [facility] [address] [place] [phone] Provider, Generic 03/24/2024 Scanned Document [facility] [address] [facility] [address] [place] [phone] Provider, Generic 03/24/2024 Travel from Last 3 [...] age to complete this topic Care Teams Svp Digital Sales Relationship Specialty Start Date End Date Pcp, No PCP - General General Medicine 04/12/23
--- OUTSIDE RECORDS SUMMARY | 2024-05-15 10:14 | XMS_ITS | Encounter Summary ---
Author Organization [facility] Address [address] [place] [address] Care Team Providers Care Medical Service Technician Name Role Phone Pcp, No Primary Care Provider Unavailabl e Encounter Details Date Type Department Care Team (Late st Contact Info) Description 03/24/2024 Scanned Document [address] [place] [phone] Provider, Generic Social History Tobacco Use [...] on filedocumented in this encounter Care Teams Medical Service Technician Relationship Specialty Start Date End Date Pcp, No PCP - General General Medicine 04/12/23 documented as of this encounter
--- OUTSIDE RECORDS SUMMARY | 2024-05-15 10:14 | XMS_ITS | Encounter Summary ---
Author Organization [facility] Address [address] [place] [address] Care Team Providers Care Digital Research Analyst Name Role Phone Pcp, No Primary Care Provider Unavailabl e Encounter Details Date Type Department Care Team (Late st Contact Info) Description 03/24/2024 Scanned Document [address] [place] [phone] Provider, Generic Social History Tobacco Use [...] on filedocumented in this encounter Care Teams Digital Research Analyst Relationship Specialty Start Date End Date Pcp, No PCP - General General Medicine 04/12/23 documented as of this encounter
== END 2024-05-15 10:08 | disposition home or self-care (01) ==
LOC: HO.HMCFM 09:29
PROVIDERS: PCP Nurse Practitioner Family; Visit Provider Nurse Practitioner Family
DX: I10 Essential (primary) hypertension (principal); E78.5 Hyperlipidemia, unspecified

== ENCOUNTER → 2024-05-15 09:28 | Outpatient (BNVA) | payer BC, SELFPAY | PROVIDERS: PCP Nurse Practitioner Family; Visit Provider Nurse Practitioner Family ==

== ENCOUNTER 2024-06-21 07:45 | Outpatient (REF) | payer BC, SELFPAY ==
--- OUTSIDE RECORDS SUMMARY | 2024-06-21 07:49 | XMS_ITS | Clinical Summary ---
Author Organization [facility] Address [address] [place] [id number] Care Team Providers Care Surveillance Monitor Name Role Phone Pcp, No Primary Care Provider Unavailabl e Allergies No known active allergies Medications amoxicillin-clav ulanate (AUGMENTIN) 875-125 MG per tabletIndication s:Left non-suppurative otitis media Take 1 tablet by mouth 2 (two) times a day. 20 tablet 4 Active ciprofloxacin-de xAMETHasone (CIPRODEX) 0.3-0.1 % otic suspensionIndica tions:Acute otitis externa of left ear, unspecified type Administer 4 drops into the left ear 2 (two) times a day. 7.5 mL 5 Active Active Problems No known active problems Encounters Date Type Department Care Team Description 03/24/2024 9:50 AM EST Office Visit [facility] [address] [place] [address] Pan Hickey MD Servello, Aldo R II, PA-C Non-recurrent acute suppurative otitis media of left ear without spontaneous rupture of tympanic membrane (Primary Dx); Acute otitis externa of left ear, unspecified type 03/24/2024 Scanned Document [facility] [address] [facility] [address] [place] [phone] Provider, Generic 03/24/2024 Scanned Document [facility] [address] [facility] [address] [place] [phone] Provider, Generic 03/24/2024 Travel from Last 3 Months Social History Tobacco Use Types Packs/Day Years Used Date Smoking Tobacco: Never Assessed Sex and Gender Information Value Date Recorded Sex Assigned at Not on file Legal Sex Male 9:07 AM EDT Gender Identity Not on file Sexual Orientation [...] on patient's age to complete [place] [id number] [facility] PPO Care Teams Surveillance Monitor Relationship Specialty Start Date End Date Pcp, No PCP - General General Medicine 04/12/23
--- OUTSIDE RECORDS SUMMARY | 2024-06-21 07:49 | XMS_ITS | Encounter Summary ---
Author Organization [facility] Address [address] [place] [address] Care Team Providers Care Hand Mounter Name Role Phone Pcp, No Primary Care Provider Unavailabl e Encounter Details Date Type Department Care Team (Late st Contact Info) Description 03/24/2024 Scanned Document [address] [place] [phone] Provider, Generic Social History Tobacco Use [...] on filedocumented in this encounter Care Teams Hand Mounter Relationship Specialty Start Date End Date Pcp, No PCP - General General Medicine 04/12/23 documented as of this encounter
--- OUTSIDE RECORDS SUMMARY | 2024-06-21 07:49 | XMS_ITS | Encounter Summary ---
Author Organization [facility] Address [address] [place] [address] Care Team Providers Care Internet Architect Name Role Phone Pcp, No Primary Care Provider Unavailabl e Encounter Details Date Type Department Care Team (Late st Contact Info) Description 03/24/2024 Scanned Document [address] [place] [phone] Provider, Generic Social History Tobacco Use [...] on filedocumented in this encounter Care Teams Internet Architect Relationship Specialty Start Date End Date Pcp, No PCP - General General Medicine 04/12/23 documented as of this encounter
[2024-06-21 12:05] LABS: Cholesterol 186 mg/dL (<200); HDL Cholesterol 41 mg/dL (>40); LDL Cholesterol Calculated 118 mg/dL (<100); Triglycerides 138 mg/dL (<150)
== END 2024-06-21 07:46 | disposition home or self-care (01) ==
LOC: HO.WFDLDS 07:45
PROVIDERS: Visit Provider Nurse Practitioner Family
DX: E78.5 Hyperlipidemia, unspecified (principal)
CPT/HCPCS: 36415; 80061

== ENCOUNTER 2024-06-26 08:08 | Outpatient (AMB) | payer BC, SELFPAY ==
--- NOTE | 2024-06-26 08:15 | A.OFFPC_ITS ---
Vital Signs 06/26/24 08:19 Height 6 ft 2 in Weight 307 lb 2 oz BMI 39.4 BP 127/60 Blood Pressure Location Rt brachial Position Sitting Respiration 16 Pulse 77 Pulse Source Pulse Oximeter Temp 98.5 F Temp Source Oral Pulse Oximetry (%) 98 Oxygen Delivery Method Room Air Intake Visit Reasons: 6 wks HTN, hyperlipidemia Intake Note: patient here for 6 wks HTN and Hyperlipidema Roll Or Tape Edge Machine Operator Required: No Allergies gluten Allergy (Severe, Uncoded 05/15/24 09:58) Diarrhea Medication List - Last Reconciled 06/26/24 by Tami Glass CNP lisinopril 20 mg PO DAILY 30 days Tobacco use date assessed: 06/26/24 Dental Screening Dental Screen Date: 06/26/24 Did you have a dental visit in the last 12 months?: Yes Did you have a dental problem in the last 6 months where you did not have access to dental care?: No Was dental information given to patient?: Patient has dentist HPI HPI Comments History of Present Illness Details 43-year-old male presents for hypertensi on and hyperlipidemia follow- up. He admits to taking lisinopril as prescribed without adverse reactions. Metoprolol was recently discontinued due to reported adverse reactions. Lisinopril 20 mg daily was ordered. He has been making healthy lifestyle changes. He offers no complaints and denies acute symptoms at this time. [facility] Medical History (Updated 04/28/24 @ 16:41 by Tami Glass CNP) Eczema Celiac disease Surgical History (Updated 04/18/24 @ 13:27 by Naida Costello MA) History of vasectomy History of endoscopy Family History (Updated 04/18/24 @ 13:30 by Naida Costello MA) Paternal Grandmother No problems noted. Maternal Grandmother Mental illness in member of household Father High blood pressure Mother Diabetes Thyroid disorder Sister Thyroid disorder Social History Housing: House Patient Tobacco Use Status: Never used Tobacco e-Cigarette/Vaping Use: Never Used Second Hand Smoke Exposure: No service: No Current occupational status: employed Current occupation: [employer] Current occupational exposures/hazards: No Cognitive needs: No Hearing needs: No Vision needs: No Questionnaire Thrive Questionnaire Date Thrive assessed: 04/18/24 I am a: Patient What is your living situation today?: I have a steady place to live Within the past 12 months, did the food you bought not last and you didn't have the money to get more?: Never true Within the past 12 months, did you worry whether your food would run out before you got money to buy more?: Never true Do you have trouble paying for medicines?: No Do you have trouble getting transportation to medical appointments?: No Do you have trouble paying your heating and electricity bill?: No Do you have trouble taking care of your child, family member or friend?: No Do you have trouble with day-to-day activities such as bathing, preparing meals, shopping, managing finances, etc.?: No Are you currently unemployed and looking for a job?: No Are you interested in more education?: No Please select the resources that you would like help with: None Currently or been in a relationship where the following occur: No concerns reported THRIVE Score: 0 ANDRAE-7 AMB Questionnaire ANDRAE-7 Date ANDRAE - 7 assessed: 04/18/24 Source: Developed by Drs. Ludwin Zavala, Paula Borden, Marcial Ojeda and colleagues, with an educational re from [employer]. Review of Systems Const Details: Const Denies chills, Denies fatigue, Denies fever(s), Denies headache(s) and Denies weakness ENT Denies dizziness and Denies headache(s) Card Denies chest pain, Denies lightheadedness, Denies dyspnea and Denies other (Palpitations) Resp Denies cough, Denies dyspnea, Denies wheezing and Denies other ( shortness of breath) GI Denies abdominal pain, Denies melena, Denies hematochezia, Denies change in bowel habits, Denies dyspepsia and Denies nausea Denies hematuria and Denies dysuria Musc Denies abnormal gait, Denies myalgias, Denies arthralgias, Denies numbness and Denies tingling Skin/Breast Denies rash, Denies unusual bruising and Denies wounds Neuro Denies abnormal gait, Denies dizziness, Denies headache(s), Denies memory loss, Denies numbness, Denies Sensory deficit (Neuro), Denies tingling and Denies weakness Psych Denies anxiety, Denies depression, Denies memory loss Endo Denies cold intolerance, Denies fatigue, Denies heat intolerance, Denies polydipsia and Denies polyuria Aller/Immun Denies wheezing Physical exam (Primary Care) Tobacco/Smoking Status: Tobacco use Status Tobacco use date assessed 05/15/24 06/26/24 08:17 Patient Tobacco Use Status Never used Tobacco 06/26/24 08:17 e-Cigarette/Vaping Use Never Used 06/26/24 08:17 Thrive Assessment: Date of Thrive Assessment Date Thrive assessed 04/18/24 06/26/24 08:17 Currently or been in a relationship where the following occur: No concerns reported Const Other: General: no acute distress and well developed Nutritional Appearance: well nourished Orientation/consciousness: patient oriented x3 HENMT Head: Yes normocephalic and Yes atraumatic Eyes General: appearance normal, both eyes and all related structures Pupils: Equal, round and reactive pupils present EOM: EOMs intact bilaterally Resp Effort & Inspection: normal respiratory effort Auscultation: clear to auscultation bilaterally Cardio Rate: regular rate Rhythm: regular rhythm Heart sounds: S1 normal heart sound present, S2 normal heart sound present, no gallops, no murmurs and no rubs GI Palpation (GI): No Abdominal aortic bruit present, Soft to palpation, nontender, No hepatosplenomegaly present and No Rebound tenderness present Auscultation: normal bowel sounds General: Yes no CVA tenderness Back/Spine/Pelvis Back: no CVA tenderness Cervical Spine: cervical ROM normal and No Cervical spine tenderness Thoracic/Lumbar Spine: thoraco-lumbar ROM normal, No pain with thoraco-lumbar ROM, No thoracic spinal tenderness and No lumbar spinal tenderness Extrem General: Yes normal to inspection, No edema and No calf tenderness Skin General: warm and dry. Normal skin color. Normal skin turgor Neuro General: patient oriented x3, gait normal and no focal neuro deficit Cranial nerves: Yes Equal, round and reactive pupils present Cognition (Neuro): normal cognition Gait exam (Neuro): Normal gait present Sensory Exam: No Sensory deficit (Neuro) Psych Appearance: grossly normal Affect: normal affect Attitude: cooperative Thought process: Normal thought process present Coding Level of Care Code Est Pt Level 3 (50537) Diagnoses Hypertension I10 Hyperlipidemia E78.5 Assessment & Plan Assessment & Plan (1) Hypertension: Code(s): I10 - Essential (primary) hypertension Category: Medical Plan: Resting blood pressure is 127/60 within goal of less than 140/90. Continue current treatment regimen. Low-sodium diet encouraged. Follow-up in 3 months or sooner with symptoms or concerns. Verbalized understanding and agreed with the plan. (2) Hyperlipidemia: Code(s): E78.5 - Hyperlipidemia, unspecified Category: Medical Plan: Recent triglyceride is normal, 138 from 156, total cholesterol is normal, 186 from 23, LDL slightly elevated, 118 from 125, HDL is normal. He has been making healthy lifestyle changes and has lost 8 lb since his last visit. Encouraged to limit foods high in saturated fats and avoid foods high in trans fats. Routine exercise encouraged. Will recheck lipid panel levels in 3 months. Fast for 10-12 hours, may drink water, and perform lipid panel blood work before next visit. Verbalized understanding and agreed with the plan. Orders: Orders Lipid Panel 3 Months E78.5 - Hyperlipidemia, unspecified
--- OUTSIDE RECORDS SUMMARY | 2024-06-26 08:18 | XMS_ITS | Clinical Summary ---
Author Organization [facility] Address [address] [place] [address] Care Team Providers Care Nurse Executive Name Role Phone Pcp, No Primary Care [...] Active Active Problems No known active problems Social History Tobacco Use Types Packs/Day Years [...] patient's age to complete this topic Insurance [place] [id number] [facility] PPO Care Teams Nurse Executive Relationship Specialty Start Date End Date Pcp, No PCP - General General Medicine 04/12/23
--- OUTSIDE RECORDS SUMMARY | 2024-06-26 08:18 | XMS_ITS | Encounter Summary ---
Author Organization [facility] Address [address] [place] [address] Care Team Providers Care Prototype Deicer Assembler Name Role Phone Pcp, No Primary Care Provider Unavailabl e Encounter Details Date Type Department Care Team (Late st Contact Info) Description 03/24/2024 Scanned Document [address] [place] [phone] Provider, Generic Social History Tobacco Use [...] on filedocumented in this encounter Care Teams Prototype Deicer Assembler Relationship Specialty Start Date End Date Pcp, No PCP - General General Medicine 04/12/23 documented as of this encounter
--- OUTSIDE RECORDS SUMMARY | 2024-06-26 08:18 | XMS_ITS | Encounter Summary ---
Author Organization [facility] Address [address] [place] [address] Care Team Providers Care Clinical Phlebotomist Name Role Phone Pcp, No Primary Care Provider Unavailabl e Encounter Details Date Type Department Care Team (Late st Contact Info) Description 03/24/2024 Scanned Document [address] [place] [phone] Provider, Generic Social History Tobacco Use [...] on filedocumented in this encounter Care Teams Clinical Phlebotomist Relationship Specialty Start Date End Date Pcp, No PCP - General General Medicine 04/12/23 documented as of this encounter
[2024-06-26 08:19] VITALS: BP 127/60; PULSE 77; RESP 16; TEMP 36.9; O2SAT 98; BMI 39.4
== END 2024-06-26 08:54 | disposition home or self-care (01) ==
LOC: HO.HMCFM 08:08
PROVIDERS: PCP Nurse Practitioner Family; Visit Provider Nurse Practitioner Family
DX: I10 Essential (primary) hypertension (principal); E78.5 Hyperlipidemia, unspecified

== ENCOUNTER → 2024-06-26 08:08 | Outpatient (BNVA) | payer BC, SELFPAY | PROVIDERS: PCP Nurse Practitioner Family; Visit Provider Nurse Practitioner Family ==

== ENCOUNTER 2024-09-22 07:32 | Outpatient (REF) | payer BC, SELFPAY ==
--- OUTSIDE RECORDS SUMMARY | 2024-09-22 07:35 | XMS_ITS | Encounter Summary ---
Author Organization [facility] Address [address] [place] [address] Care Team Providers Care Bulldozer Operator Name Role Phone Pcp, No Primary Care Provider Unavailabl e Encounter Details Date Type Department Care Team (Late st Contact Info) Description 03/24/2024 Scanned Document [address] [place] [phone] Provider, Generic Social History Tobacco Use [...] on filedocumented in this encounter Care Teams Bulldozer Operator Relationship Specialty Start Date End Date Pcp, No PCP - General General Medicine 04/12/23 documented as of this encounter
--- OUTSIDE RECORDS SUMMARY | 2024-09-22 07:35 | XMS_ITS ---
Author Name [facility] Unknown History of Medication Use Medication [...] Comment Documented Date Source Statu s GLUTEN NOT INDICATED [facility]_PHYSONE Problems Problem Status Onset Date Problem Type Date of Resolution Source Otitis media, unspecified, left ear active 2023-06-[address] [facility] Acute otitis externa of left ear, unspecified type active EncounterDiagnosisAct [facility] Non-recurrent acute suppurative otitis media of left ear without spontaneous rupture of tympanic membrane active EncounterDiagnosisAct H [facility] Encounters Encounter Type Encounter Reason Primary Diagnosis Location Date Ambulatory Ear Pain Ear Pain [facility] 03/24/2024 Ambulatory Unspecified nonsuppurative otitis media, left ear Unspecified nonsuppurative otitis media, left ear [facility] 04/12/2023 Ambulatory Otitis media, unspecified, left ear [facility] 11/24/2021 Care Team Organization Name Specialty Phone Email Start Date End Da te [facility] NO PROVIDER Primary Care 06/17/2023 [facility] NO PROVIDER Primary Care 06/16/2023 [facility] NO PCP Primary Care 04/12/2023 [facility] 11/24/2021 05/17/2024 [facility] 11/24/2021 11/24/2021
[2024-09-22 11:28] LABS: Cholesterol 208 mg/dL (<200); HDL Cholesterol 45 mg/dL (>40); Triglycerides 136 mg/dL (<150)
== END 2024-09-22 07:33 | disposition home or self-care (01) ==
LOC: HO.WFDLDS 07:32
PROVIDERS: Visit Provider Nurse Practitioner Family
DX: E78.5 Hyperlipidemia, unspecified (principal)
CPT/HCPCS: 36415; 80061

== ENCOUNTER 2024-09-26 08:15 | Outpatient (AMB) | payer BC, SELFPAY ==
--- OUTSIDE RECORDS SUMMARY | 2024-09-26 08:22 | XMS_ITS | Encounter Summary ---
Author Organization [facility] Address [address] [place] [address] Care Team Providers Care Research Program Internship Name Role Phone Pcp, No Primary Care Provider Unavailabl e Encounter Details Date Type Department Care Team (Late st Contact Info) Description 03/24/2024 Scanned Document [address] [place] [phone] Provider, Generic Social History Tobacco Use [...] on filedocumented in this encounter Care Teams Research Program Internship Relationship Specialty Start Date End Date Pcp, No PCP - General General Medicine 04/12/23 documented as of this encounter
--- NOTE | 2024-09-26 08:26 | A.OFFPC_ITS ---
Vital Signs 09/26/24 08:29 Height 6 ft 2 in Weight 304 lb 2 oz BMI 39.0 BP 128/67 Blood Pressure Location Rt brachial Position Sitting Respiration 16 Pulse 77 Pulse Source Pulse Oximeter Temp 98.6 F Temp Source Oral Pulse Oximetry (%) 96 Oxygen Delivery Method Room Air Intake Visit Reasons: 3 mos HTN, HLD Intake Note: patient here for 3month follow up for HTN and HLD Extract Mixer Required: No Allergies gluten Allergy (Severe, Uncoded 09/26/24 08:47) Diarrhea Medication List - Last Reconciled 09/26/24 by Tami Glass CNP lisinopril 20 mg PO DAILY 30 days Tobacco use date assessed: 09/26/24 Dental Screening Dental Screen Date: 09/26/24 Did you have a dental visit in the last 12 months?: Yes Did you have a dental problem in the last 6 months where you did not have access to dental care?: No Was dental information given to patient?: Patient has dentist HPI HPI Comments History of Present Illness Details 43-year-old male presents for hypertensi on and hyperlipidemia follow- up. He admits to taking lisinopril as prescribed without adverse reactions. He notes that he has been making healthy lifestyle changes. His home blood pressure readings are under 134/80. He offers no complaints and denies acute symptoms at this time. [facility] Medical History (Updated 04/28/24 @ 16:41 by Tami Glass CNP) Eczema Celiac disease Surgical History (Updated 04/18/24 @ 13:27 by Naida Costello MA) History of vasectomy History of endoscopy Family History (Updated 04/18/24 @ 13:30 by Naida Costello MA) Paternal Grandmother No problems noted. Maternal Grandmother Mental illness in member of household Father High blood pressure Mother Diabetes Thyroid disorder Sister Thyroid disorder Social History Housing: House Patient Tobacco Use Status: Never used Tobacco e-Cigarette/Vaping Use: Never Used Second Hand Smoke Exposure: No service: No Current occupational status: employed Current occupation: [employer] Current occupational exposures/hazards: No Cognitive needs: No Hearing needs: No Vision needs: No Questionnaire Thrive Questionnaire Date Thrive assessed: 04/18/24 I am a: Patient What is your living situation today?: I have a steady place to live Within the past 12 months, did the food you bought not last and you didn't have the money to get more?: Never true Within the past 12 months, did you worry whether your food would run out before you got money to buy more?: Never true Do you have trouble paying for medicines?: No Do you have trouble getting transportation to medical appointments?: No Do you have trouble paying your heating and electricity bill?: No Do you have trouble taking care of your child, family member or friend?: No Do you have trouble with day-to-day activities such as bathing, preparing meals, shopping, managing finances, etc.?: No Are you currently unemployed and looking for a job?: No Are you interested in more education?: No Please select the resources that you would like help with: None Currently or been in a relationship where the following occur: No concerns reported THRIVE Score: 0 ANDRAE-7 AMB Questionnaire ANDRAE-7 Date ANDRAE - 7 assessed: 04/18/24 Source: Developed by Drs. Ludwin Zavala, Paula Borden, Marcial Ojeda and colleagues, with an educational re from [employer]. Review of Systems Const Details: Const Denies chills, Denies fatigue, Denies fever(s), Denies headache(s) and Denies w eakness ENT Denies dizziness and Denies headache(s) Card Denies chest pain, Denies lightheadedness, Denies dyspnea and Denies other (Palpitations) Resp Denies cough, Denies dyspnea, Denies wheezing and Denies other ( shortness of breath) GI Denies abdominal pain, Denies melena, Denies hematochezia, Denies change in bowel habits, Denies dyspepsia and Denies nausea Denies hematuria and Denies dysuria Musc Denies abnormal gait, Denies myalgias, Denies arthralgias, Denies numbness and Denies tingling Skin/Breast Denies rash, Denies unusual bruising and Denies wounds Neuro Denies abnormal gait, Denies dizziness, Denies headache(s), Denies memory loss, Denies numbness, Denies Sensory deficit (Neuro), Denies tingling and Denies weakness Psych Denies anxiety, Denies depression, Denies memory loss Endo Denies cold intolerance, Denies fatigue, Denies heat intolerance, Denies polydipsia and Denies polyuria Aller/Immun Denies wheezing Physical exam (Primary Care) Vital Signs: Last Vital Signs Temp 98.6 F 09/26/24 08:29 Pulse 77 09/26/24 08:29 Resp 16 09/26/24 08:29 BP 128/67 09/26/24 08:29 Pulse Ox 96 09/26/24 08:29 Oxygen Delivery Method Room Air 09/26/24 08:29 BMI result Body Mass Index 39.0 Tobacco/Smoking Status: Tobacco use Status Tobacco use date assessed 09/26/24 09/26/24 08:32 Patient Tobacco Use Status Never used Tobacco 09/26/24 08:28 e-Cigarette/Vaping Use Never Used 09/26/24 08:28 Thrive Assessment: Date of Thrive Assessment Date Thrive assessed 04/18/24 09/26/24 08:28 Currently or been in a relationship where the following occur: No concerns reported Const Other: General: no acute distress and well developed Nutritional Appearance: well nourished Orientation/consciousness: patient oriented x3 HENMT Head: Yes normocephalic and Yes atraumatic Eyes General: appearance normal, both eyes and all related structures Pupils: Equal, round and reactive pupils present EOM: EOMs intact bilaterally Resp Effort & Inspection: normal respiratory effort Auscultation: clear to auscultation bilaterally Cardio Rate: regular rate Rhythm: regular rhythm Heart sounds: S1 normal heart sound present, S2 normal heart sound present, no gallops, no murmurs and no rubs GI Palpation (GI): No Abdominal aortic bruit present, Soft to palpation, nontender, No hepatosplenomegaly present and No Rebound tenderness present Auscultation: normal bowel sounds General: Yes no CVA tenderness Back/Spine/Pelvis Back: no CVA tenderness Cervical Spine: cervical ROM normal and No Cervical spine tenderness Thoracic/Lumbar Spine: thoraco-lumbar ROM normal, No pain with thoraco-lumbar ROM, No thoracic spinal tenderness and No lumbar spinal tenderness Extrem General: Yes normal to inspection, No edema and No calf tenderness Skin General: warm and dry. Normal skin color. Normal skin turgor Neuro General: patient oriented x3, gait normal and no focal neuro deficit Cranial nerves: Yes Equal, round and reactive pupils present Cognition (Neuro): normal cognition Gait exam (Neuro): Normal gait present Sensory Exam: No Sensory deficit (Neuro) Psych Appearance: grossly normal Affect: normal affect Attitude: cooperative Thought process: Normal thought process present Coding Level of Care Code Est Pt Level 3 (69081) Diagnoses Hypertension I10 Hyperlipidemia E78.5 Assessment & Plan Assessment & Plan (1) Hypertension: Code(s): I10 - Essential (primary) hypertension Category: Medical Plan: Blood pressure today is 128/67, within goal of less than 140/90. His home blood pressure readings are under 134/80. Continue current treatment regimen. Low-sodium diet encouraged. Follow-up in 3 months or sooner with symptoms or concerns. Verbalized understanding and agreed with the plan. (2) Hyperlipidemia: Code(s): E78.5 - Hyperlipidemia, unspecified Category: Medical Plan: Recent total cholesterol is slightly elevated, 208, from 186, LDL level is 136 form 118. Triglycerides and HDL level is normal. Advised to limit foods high in saturated fat and avoid foods high in trans fat. Routine exercise encouraged. Fast for 10-12 hours, may drink water, perform lipid panel blood work 2-3 days before next visit. Follow-up in 3 months. Verbalized understanding and agreed with the plan. Orders: Orders Lipid Panel 3 Months E78.5 - Hyperlipidemia, unspecified
[2024-09-26 08:29] VITALS: BP 128/67; PULSE 77; RESP 16; TEMP 37; O2SAT 96; BMI 39.0
== END 2024-09-26 08:57 | disposition home or self-care (01) ==
LOC: HO.HMCFM 08:16
PROVIDERS: PCP Nurse Practitioner Family; Visit Provider Nurse Practitioner Family
DX: I10 Essential (primary) hypertension (principal); E78.5 Hyperlipidemia, unspecified

== ENCOUNTER 2024-12-27 07:40 | Outpatient (REF) | payer BC, SELFPAY ==
--- OUTSIDE RECORDS SUMMARY | 2023-12-28 10:45 | XMS_ITS ---
Author Organization [facility], [place] Address [address] [facility] [place] [address] Care Team Providers Care Hogshead Opener Name Role Phone Migration, Provider Unavailable Unavailable REASON FOR VISIT New Patient Exam Encounters Encounter Location Date Provider Diagnosis [facility], [address] [place] [address] 12/28/2023 Provider Migration Plan Of Treatment No Information Progress Notes * Taz ARGUELLESDOB:1980 (44 yo M)Acc No.[id number]:12/28/2023 Progress Notes Patient: Taz Lockwood Provider: Bobby Zimmerman :1980 A ge:43 Y S ex:Male Date:12/28/2023 Phone: Address:[address] [place] [address] Essence Carvalho [place], [phone] Subjective: * Chief Complaints: * N ew Patient Exam * Ocular Surgical History: Objective: Vision Examination: * Electronic signature of Prov ider Migration on 12/27/2024 at 07:42 AM EDT Sign off status: Pending * Provider: Bobby dale Migration Date: Generated for Zulma gloria/Hillary/eTransmitting on: 07:42 AM EDT
--- OUTSIDE RECORDS SUMMARY | 2024-01-13 07:45 | XMS_ITS ---
Author Organization [facility], [place] Address [address] [place] [address] Care Team Providers Care Baker Paint Name Role Phone Migration, Provider Unavailable Unavailable REASON FOR VISIT New Patient Exam Encounters Encounter Location Date Provider Diagnosis [facility], [address] [place] [phone] 01/13/2024 Provider Migration Plan Of Treatment No Information Progress Notes * Taz ARGUELLESDOB:1980 (44 yo M)Acc No.[id number]:01/13/2024 Progress Notes Patient: Taz Lockwood Provider: Bobby Zimmerman :1980 A ge:43 Y S ex:Male Date:01/13/2024 Phone: Address:[address] [place] [address] Essence Carvalho [place], [phone] Subjective: * Chief Complaints: * N ew Patient Exam * Ocular Surgical History: Objective: Vision Examination: * Electronic signature of Prov ider Migration on 12/27/2024 at 07:42 AM EDT Sign off status: Pending * Provider: Bobby dale Migration Date: 03/14/2023 Generated for Zulma gloria/Hillary/eTransmitting on: 07:42 AM EDT
--- OUTSIDE RECORDS SUMMARY | 2024-12-27 07:43 | XMS_ITS | Encounter Summary ---
Author Organization [facility] Address [address] [place] [id number] Care Team Providers Care Lead Java Developer Architect Name Role Phone Pcp, No Primary Care Provider Unavailabl e Pcp, No Primary Care Provider Unavailabl e Encounter Details Date Type Department Care Team (Late st Contact Info) Description 03/24/2024 Scanned Document [address] [phone] Provider, Generic Social History Tobacco Use Types Packs/Day Years Used Date Smoking Tobacco: Never Assessed Sex and Gender Information Value Date Recorded Sex Assigned at Not on file Legal Sex Male 9:07 AM EDT Gender Identity Not on file Sexual Orientation Not on file documented as of this encounter Plan of Treatment Upcoming Encounters Date Type Department Care Team (Late st Contact Info) Description 01/10/2025 3:15 PM EST Consult [facility] Cardiology [address] [place] [phone] Joaquin Ziegler MD [address] [place] [phone] documented as of this encounter Visit Diagnoses Not on filedocumented in this encounter Care Teams Lead Java Developer Architect Relationship Specialty Start Date End Date Pcp, No PCP - General General Medicine 04/12/23 11/12/24 Pcp, No PCP - General General Medicine 11/13/24 documented as of this encounter
--- OUTSIDE RECORDS SUMMARY | 2024-12-27 07:43 | XMS_ITS | Patient Health Record ---
Author Organization [facility] Address [address] [place] [address] Care Team Providers Care Brake Operator Heavy Duty Name Role Phone Migration, Provider Unavailable Unavailable Reason For Referral No Information Encounters Encounter Location Date Provider Diagnosis [facility] [address] [phone] 12/28/2023 Provider Migration [address] [phone] 01/13/2024 Provider Migration Plan Of Treatment No Information
--- OUTSIDE RECORDS SUMMARY | 2024-12-27 07:43 | XMS_ITS | Encounter Summary ---
Author Organization [facility] Address [address] [place] [id number] Care Team Providers Care Heritage Consultant Name Role Phone Pcp, No Primary Care Provider Unavailabl e Pcp, No Primary Care Provider Unavailabl e Encounter Details Date Type Department Care Team (Late st Contact Info) Description 03/24/2024 Scanned Document [address] [phone] Provider, Generic Social History Tobacco Use Types [...] Info) Description 01/10/2025 3:15 PM EST Consult [facility] Cardiology [address] [place] [phone] Joaquin Ziegler MD [address] [place] [phone] documented as of this encounter Visit Diagnoses Not on filedocumented in this encounter Care Teams Heritage Consultant Relationship Specialty Start Date End Date Pcp, No PCP - General General Medicine 04/12/23 11/12/24 Pcp, No PCP - General General Medicine 11/13/24 documented as of this encounter
--- OUTSIDE RECORDS SUMMARY | 2024-12-27 07:43 | XMS_ITS | Clinical Summary ---
Author Organization [facility] Address [address] [place] [address] Care Team Providers Care Risk Specialist Name Role Phone Pcp, No Primary [...] 85 03/24/2024 9:48 AM EST Temperature 36.9 C (98.4 F) 03/24/2024 9:48 AM EST Respiratory Rate - - Oxygen Saturation 96% 03/24/2024 9:48 AM EST Inhaled Oxygen Concentration - - Weight 141 kg (310 lb) 11/24/2021 9:22 AM EDT Height 188 cm (6' 2 ) 11/24/2021 9:22 AM EDT Body Mass Index 39.8 11/24/2021 9:22 AM EDT Plan of Treatment Upcoming Encounters Date Type Department Care Team (Late st Contact Info) Description 01/10/2025 3:15 PM EST Consult [facility] [address] [place] [phone] Joaquin Ziegler MD 100 [facility] [address] [place] [address] Health Maintenance Due Date Last Done Comments Hepatitis C Virus Screening 1982 HIV Screening 12/23/1995 DTaP/Tdap/Td Vaccines (1 - Tdap) 2001 Hepatitis B Vaccines (1 of 3 - 19+ 3-dose series) 2001 Influenza Vaccine 09/29/2024 COVID-19 Vaccine (3 - 2024-2 6 season) 2024 07/24/2020, 06/26/2020 HPV Vaccines (No Doses Required) Completed Pneumococcal Vaccine: Pediatric (0-5 Years) and At-Risk Patients (6 to 49 Years) Aged Out No longer eligible b ased on patient's age to complete this topic Insurance [place] [id number] [employer] [place] [address] [employer] [place] PPO Care Teams Risk Specialist Relationship Specialty Start Date End Date Pcp, No PCP - General General Medicine 11/13/24
[2024-12-27 12:12] LABS: Cholesterol 205 mg/dL (<200); HDL Cholesterol 42 mg/dL (>40); Triglycerides 148 mg/dL (<150)
== END 2024-12-27 07:41 | disposition home or self-care (01) ==
LOC: HO.WFDLDS 07:40
PROVIDERS: Visit Provider Nurse Practitioner Family
DX: E78.5 Hyperlipidemia, unspecified (principal)
CPT/HCPCS: 36415; 80061

== ENCOUNTER 2025-01-01 08:10 | Outpatient (AMB) | payer BC, SELFPAY ==
--- OUTSIDE RECORDS SUMMARY | 2023-12-28 09:45 | XMS_ITS ---
Author Organization [facility], [place] Address [address] [place] [address] Care Team Providers Care Safe And Vault Service Mechanic Name Role Phone Migration, Provider Unavailable Unavailable REASON FOR VISIT New Patient Exam Encounters Encounter Location Date Provider Diagnosis [facility], [address] [place] [phone] 12/28/2023 Provider Migration Plan Of Treatment No Information Progress Notes * Taz ARGUELLESDOB:1980 (44 yo M)Acc No.[id number]:12/28/2023 Progress Notes Patient: Taz Lockwood Provider: Bobby Zimmerman :1980 A ge:43 Y S ex:Male Date:12/28/2023 Phone: Address:[address] [place] [address] Essence Carvalho [place], [id number] Subjective: * Chief Complaints: * N ew Patient Exam * Ocular Surgical History: Objective: Vision Examination: * Electronic signature of Prov ider Migration on 01/01/2025 at 08:25 AM EST Sign off status: Pending * Provider: Bobby dale Migration Date: Generated for Zulma gloria/Hillary/Nellismitting on: 03/03/2024 08:25 AM EST
--- OUTSIDE RECORDS SUMMARY | 2024-01-13 06:45 | XMS_ITS ---
Author Organization [facility], [place] Address [address] [place] [address] Care Team Providers Care Supervisor Fertilizer Name Role Phone Migration, Provider Unavailable Unavailable REASON FOR VISIT New Patient Exam Encounters Encounter Location Date Provider Diagnosis [facility], [address] [place] [phone] 01/13/2024 Provider Migration Plan Of Treatment No Information Progress Notes * Taz ARGUELLESDOB:1980 (44 yo M)Acc No.[id number]:01/13/2024 Progress Notes Patient: Taz Lockwood Provider: Bobby Zimmerman :1980 A ge:43 Y S ex:Male Date:01/13/2024 Phone: Address:[address] [place] [address] Essence Carvalho [place], [id number] Subjective: * Chief Complaints: * N ew Patient Exam * Ocular Surgical History: Objective: Vision Examination: * Electronic signature of Prov ider Migration on 01/01/2025 at 08:25 AM EST Sign off status: Pending * Provider: Bobby dale Migration Date: 03/14/2023 Generated for Zulma gloria/Hillary/Nellismitting on: 03/03/2024 08:25 AM EST
--- NOTE | 2025-01-01 08:12 | MHC.PC.OV ---
Vital Signs 01/01/25 08:16 Height 6 ft 2 in Weight 296 lb 4 oz BMI 38.0 BP 131/61 Blood Pressure Location Rt brachial Position Sitting Respiration 16 Pulse 82 Pulse Source Pulse Oximeter Temp 98.4 F Temp Source Oral Pulse Oximetry (%) 97 Oxygen Delivery Method Room Air Intake Visit Reasons: 3 mos HTN, HLD Intake Note: patient here for 3 month follow up on HTN and HLD Plaster And Stucco Worker Required: No Allergies gluten Allergy (Severe, Uncoded 01/01/25 08:45) Diarrhea Medication List - Last Reconciled 01/01/25 by Tami Glass CNP lisinopril 20 mg PO DAILY 30 days Tobacco use date assessed: 01/01/25 Dental Screening Dental Screen Date: 01/01/25 Did you have a dental visit in the last 12 months?: Yes Did you have a dental problem in the last 6 months where you did not have access to dental care?: No Was dental information given to patient?: Patient has dentist HPI HPI Comments History of Present Illness Details 43-year-old male presents for hypertension and hyperlipidemia follow-up. He admits to taking lisinopril as prescribed without adverse reactions. He notes that he has been making healthy lifestyle changes. However, recently, it more processed foods. He checks his blood pressure 1-2 times daily and his pressure readings are less than 130/80. He offers no complaints and denies acute symptoms at this time. [facility] Medical History (Updated 04/28/24 @ 16:41 by Tami Glass CNP) Eczema Celiac disease Surgical History (Updated 04/18/24 @ 13:27 by FARHAD Blanc) History of vasectomy History of endoscopy Family History (Updated 04/18/24 @ 13:30 by FARHAD Blanc) Paternal Grandmother No problems noted. Maternal Grandmother Mental illness in member of household Father High blood pressure Mother Diabetes Thyroid disorder Sister Thyroid disorder Social History Housing: House Patient Tobacco Use Status: Never used Tobacco e-Cigarette/Vaping Use: Never Used Second Hand Smoke Exposure: No service: No Current occupational status: employed Current occupation: [employer] Current occupational exposures/hazards: No Cognitive needs: No Hearing needs: No Vision needs: No Questionnaire Thrive Questionnaire Date Thrive assessed: 04/18/24 I am a: Patient What is your living situation today?: I have a steady place to live Within the past 12 months, did the food you bought not last and you didn't have the money to get more?: Never true Within the past 12 months, did you worry whether your food would run out before you got money to buy more?: Never true Do you have trouble paying for medicines?: No Do you have trouble getting transportation to medical appointments?: No Do you have trouble paying your heating and electricity bill?: No Do you have trouble taking care of your child, family member or friend?: No Do you have trouble with day-to-day activities such as bathing, preparing meals, shopping, managing finances, etc.?: No Are you currently unemployed and looking for a job?: No Are you interested in more education?: No Please select the resources that you would like help with: None Currently or been in a relationship where the following occur: No concerns reported THRIVE Score: 0 ANDRAE-7 AMB Questionnaire ANDRAE-7 Date ANDRAE - 7 assessed: 04/18/24 Source: Developed by Drs. Ludwin Zavala, Paula Borden, Marcial Ojeda and colleagues, with an educational re from [employer]. Review of Systems Const Details: Const Denies chills, Denies fatigue, Denies fever(s), Denies headache(s) and Denies weakness ENT Denies dizziness and Denies headache(s) Card Denies chest pain, Denies lightheadedness, Denies dyspnea and Denies other (Palpitations) Resp Denies cough, Denies dyspnea, Denies wheezing and Denies other ( shortness of breath) GI Denies abdominal pain, Denies melena, Denies hematochezia, Denies change in bowel habits, Denies dyspepsia and Denies nausea Denies hematuria and Denies dysuria Musc Denies abnormal gait, Denies myalgias, Denies arthralgias, Denies numbness and Denies tingling Skin/Breast Denies rash, Denies unusual bruising and Denies wounds Neuro Denies abnormal gait, Denies dizziness, Denies headache(s), Denies memory loss, Denies numbness, Denies Sensory deficit (Neuro), Denies tingling and Denies weakness Psych Denies anxiety, Denies depression, Denies memory loss Endo Denies cold intolerance, Denies fatigue, Denies heat intolerance, Denies polydipsia and Denies polyuria Aller/Immun Denies wheezing Physical exam (Primary Care) Vital Signs: Last Vital Signs Temp 98.4 F 01/01/25 08:16 Pulse 82 01/01/25 08:16 Resp 16 01/01/25 08:16 BP 131/61 01/01/25 08:16 Pulse Ox 97 01/01/25 08:16 Oxygen Delivery Method Room Air 01/01/25 08:16 BMI result Body Mass Index 38.0 Tobacco/Smoking Status: Tobacco use Status Tobacco use date assessed 01/01/25 01/01/25 08:18 Patient Tobacco Use Status Never used Tobacco 01/01/25 08:18 e-Cigarette/Vaping Use Never Used 01/01/25 08:18 Thrive Assessment: Date of Thrive Assessment Date Thrive assessed 04/18/24 01/01/25 08:18 Currently or been in a relationship where the following occur: No concerns reported Const Other: General: no acute distress and well developed Nutritional Appearance: well nourished Orientation/consciousness: patient oriented x3 HENMT Head: Yes normocephalic and Yes atraumatic Eyes General: appearance normal, both eyes and all related structures Pupils: Equal, round and reactive pupils present EOM: EOMs intact bilaterally Resp Effort & Inspection: normal respiratory effort Auscultation: clear to auscultation bilaterally Cardio Rate: regular rate Rhythm: regular rhythm Heart sounds: S1 normal heart sound present, S2 normal heart sound present, no gallops, no murmurs and no rubs GI Palpation (GI): No Abdominal aortic bruit present, Soft to palpation, nontender, No hepatosplenomegaly present and No Rebound tenderness present Auscultation: normal bowel sounds General: Yes no CVA tenderness Back/Spine/Pelvis Back: no CVA tenderness Cervical Spine: cervical ROM normal and No Cervical spine tenderness Thoracic/Lumbar Spine: thoraco-lumbar ROM normal, No pain with thoraco-lumbar ROM, No thoracic spinal tenderness and No lumbar spinal tenderness Extrem General: Yes normal to inspection, No edema and No calf tenderness Skin General: warm and dry. Normal skin color. Normal skin turgor Neuro General: patient oriented x3, gait normal and no focal neuro deficit Cranial nerves: Yes Equal, round and reactive pupils present Cognition (Neuro): normal cognition Gait exam (Neuro): Normal gait present Sensory Exam: No Sensory deficit (Neuro) Psych Appearance: grossly normal Affect: normal affect Attitude: cooperative Thought process: Normal thought process present Coding Level of Care Code Est Pt Level 3 (26250) Diagnoses Hypertension I10 Hyperlipidemia E78.5 Assessment & Plan Assessment & Plan (1) Hypertension: Code(s): I10 - Essential (primary) hypertension Category: Medical Plan: Blood pressure is 131/61, within goal of less than 140/90. Continue current treatment regimen. Low-sodium diet encouraged. Follow-up in 3 months or sooner with symptoms or concerns. Verbalized understanding and agreed with the treatment plan. (2) Hyperlipidemia: Code(s): E78.5 - Hyperlipidemia, unspecified Category: Medical Plan: Recent total cholesterol and LDL level is slightly elevated, 205 and 134 respectively, previous levels were 208 and 136 respectively. Triglycerides and HDL levels are normal. Advised to limit foods high in saturated fat and avoid foods high in trans fat. Routine exercise encouraged. Fast for 10-12 hours, may drink water, and performe lipid panel blood work a few days before next visit. Follow-up for transfer of care and hyperlipidemia in 3 months. Return sooner with symptoms or concerns. Verbalized understanding and agreed with the plan. Orders: Orders Lipid Panel 3 Months E78.5 - Hyperlipidemia, unspecified
[2025-01-01 08:16] VITALS: BP 131/61; PULSE 82; RESP 16; TEMP 36.9; O2SAT 97; BMI 38.0
--- OUTSIDE RECORDS SUMMARY | 2025-01-01 08:26 | XMS_ITS | Clinical Summary ---
Author Organization [facility] Address [address] [place] [address] Care Team Providers Care Manufacturing Chief Engineer Name Role Phone Pcp, No Primary Care [...] 01/10/2025 3:15 PM EST Consult [facility] [address] [place] [address] Joaquin Ziegler MD 100 [facility] [address] [place] [address] Health Maintenance Due Date Last Done Comments [...] age to complete this topic Insurance [facility] [place] [phone] [employer] [place] [address] [employer] Care Teams Manufacturing Chief Engineer Relationship Specialty Start Date End Date Pcp, No PCP - General General Medicine 11/13/24
--- OUTSIDE RECORDS SUMMARY | 2025-01-01 08:26 | XMS_ITS | Encounter Summary ---
Author Organization [facility] Address [address] [place] [address] Care Team Providers Care Cna Instructor Name Role Phone Pcp, No Primary Care Provider Unavailabl e Pcp, No Primary Care Provider Unavailabl e Encounter Details Date Type Department Care Team (Late st Contact Info) Description 03/24/2024 Scanned Document [address] [phone] Provider, Generic Social History Tobacco Use Types [...] Info) Description 01/10/2025 3:15 PM EST Consult [facility] [address] [place] [phone] Joaquin Ziegler MD [address] [place] [phone] documented as of this encounter Visit Diagnoses Not on filedocumented in this encounter Care Teams Cna Instructor Relationship Specialty Start Date End Date Pcp, No PCP - General General Medicine 04/12/23 11/12/24 Pcp, No PCP - General General Medicine 11/13/24 documented as of this encounter
--- OUTSIDE RECORDS SUMMARY | 2025-01-01 08:26 | XMS_ITS | Encounter Summary ---
Author Organization [facility] Address [address] [place] [address] Care Team Providers Care Electroplater Automatic Name Role Phone Pcp, No Primary Care Provider Unavailabl e Pcp, No Primary Care Provider Unavailabl e Encounter Details Date Type Department Care Team (Late st Contact Info) Description 03/24/2024 Scanned Document [address] [phone] Provider, Generic Social History Tobacco Use Types [...] Info) Description 01/10/2025 3:15 PM EST Consult [facility] [address] [place] [phone] Joaquin Ziegler MD [address] [place] [phone] documented as of this encounter Visit Diagnoses Not on filedocumented in this encounter Care Teams Electroplater Automatic Relationship Specialty Start Date End Date Pcp, No PCP - General General Medicine 04/12/23 11/12/24 Pcp, No PCP - General General Medicine 11/13/24 documented as of this encounter
--- OUTSIDE RECORDS SUMMARY | 2025-01-01 08:26 | XMS_ITS | Patient Health Record ---
Author Organization [facility] [place] Address [address] [facility] [address] [place] [address] Care Team Providers Care Equipment Maintenance Superintendent Name Role Phone Migration, Provider Unavailable Unavailable Reason For Referral No Information Encounters Encounter Location Date Provider Diagnosis [facility], [address] [place] [phone] 01/13/2024 Provider Migration Plan Of Treatment No Information
== END 2025-01-01 08:57 | disposition home or self-care (01) ==
LOC: HO.HMCFM 08:11
PROVIDERS: PCP Nurse Practitioner Family; Visit Provider Nurse Practitioner Family
DX: I10 Essential (primary) hypertension (principal); E78.5 Hyperlipidemia, unspecified